=== PATIENT | male | born 1990 | race Caucasian/White ===

== ENCOUNTER 2018-06-03 00:58 | Emergency (ER) | payer BC, SELFPAY ==
[2018-06-03] VITALS (9 sets, daily range): BP systolic 131–139; BP diastolic 73–85; PULSE 89–99; RESP 14–18; TEMP 36.4; O2SAT 96–100; BMI 29.5
[2018-06-03 01:38] LABS: Absolute Lymphocyte Count 1.82 X10^3/ul (0.83-4.51); Absolute Neutrophil Count 8.4 X10^3/uL (2.0-7.7); Basophil# 0.09 X10^3/uL; Basophil% 0.8 % (0-1); Eosinophils% 0.9 % (0-5); Hematocrit 48.1 % (40-54); Hemoglobin 16.5 g/dl (13.0-16.5); Lymphocyte # 1.82 X10^3/ul (4.0); Mean Corp Hgb Conc 34.3 g/gl (32-36); Mean Corpuscular Hgb 30.3 pg (27.0-32.0); Mean Corpuscular Volume 88.3 fL (80-94); Mean Platelet Vol. 10.9 fl (6.2-12.0); Monocyte# 0.73 X10^3/uL; Monocyte% 6.4 % (0-10); Neutrophil # 8.39 X10^3/uL (2.7-7.7); Platelet Count 272 K/mm3 (150-450); RBC Distribution Width CV 12.4 % (11.6-14.6); RBC Distribution Width SD 40.1 fl (35.1-43.9); Red Blood Count 5.45 M/mm3 (4.6-6.2); White Blood Count 11.3 K/mm3 (4.4-11.0)
[2018-06-03 01:39] LABS: POSITIVE COUNT NO; POSITIVE DIFFERENTIAL NO; POSITIVE MORPHOLOGY NO
[2018-06-03 01:49] LABS: Anion Gap 5 (5-15); BUN 8 mg/dL (7-18); BUN/Creat Ratio 7.8 RATIO (10-20); Calcium,Total 8.7 mg/dL (8.5-10.1); Chloride 106 mmol/L (98-107); Creatinine, Serum 1.03 mg/dL (0.70-1.30); EST Glomerular Filtration Rate 92 mL/min (>60); Est Glom Filt Rate - Afr Amer 112 mL/min (>60); Estimated Creatinine Clearance 108.68 ml/min; Glucose 127 mg/dL (74-106); Potassium 4.2 mmol/L (3.5-5.1); Sodium Level 141 mmol/L (136-145)
[2018-06-03 01:52] LABS: Amphetamine Urine VISTA NEGATIVE (<1000 ng/mL); Barbiturate Urine VISTA NEGATIVE (< 200 ng/mL); Benzodiazepine Urine VISTA NEGATIVE (< 200 ng/mL); Cocaine Urine VISTA NEGATIVE (< 300 ng/mL); Ecstacy Urine VISTA NEGATIVE (< 500 ng/mL); Methadone Urine VISTA NEGATIVE (< 300 ng/mL); PCP Urine VISTA NEGATIVE (< 25 ng/mL); THC Urine VISTA NEGATIVE (< 50 ng/mL); Vista UDS pH Range 6
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
--- NOTE | 2018-06-03 07:13 | NURSING ---
OBDULIA, FANNY, CALLED BACK. SHE WILL LET NEXT SHIFT DO PATIENT
[2018-06-03] MEDS: Ondansetron ODT 4 MG Tablet PO (08:05)
--- NOTE | 2018-06-03 09:53 | NURSING ---
SHAI, CRISIS, HERE
--- NOTE | 2018-06-03 10:19 | ED.RN ---
DIETARY CALLED REGARDING LUNCH.
== END 2018-06-03 13:50 ==
PROVIDERS: Emergency Medicine; Emergency Provider Emergency Medicine; Family Provider Family Medicine; PCP Family Medicine
DX: R45.851 Suicidal ideations (principal); F10.129 Alcohol abuse with intoxication, unspecified; Y90.8 Blood alcohol level of 240 mg/100 ml or more
CPT/HCPCS: 36415; 80048; 80307; 80320; 85025; 99284; G0480

== ENCOUNTER 2019-12-26 16:37 | Emergency (ER) | payer SELFPAY ==
[2018-06-03 01:00] VITALS: BMI 29.5
[2019-12-26 16:38] VITALS: BP 111/75; PULSE 102; RESP 16; TEMP 36.2; O2SAT 98; BMI 28.0
[2019-12-26 17:01] LABS: Absolute Lymphocyte Count 2.45 X10^3/uL (0.83-4.51); Absolute Neutrophil Count 6.5 X10^3/uL (2.0-7.7); Basophil# 0.13 X10^3/uL; Basophil% 1.3 % (0-1); Eosinophil# 0.07 X10^3/uL; Eosinophils% 0.7 % (0-5); Hematocrit 51.1 % (40-54); Hemoglobin 16.6 g/dL (13.0-16.5); Lymphocyte # 2.45 X10^3/ul (4.0); Lymphocyte % 24.2 % (19-41); Mean Corp Hgb Conc 32.5 g/dL (32-36); Mean Corpuscular Hgb 28.9 pg (27.0-32.0); Monocyte# 0.65 X10^3/uL; Monocyte% 6.4 % (0-10); NRBC Flagged by Analyzer 0 % (0-5); Neutrophil # 6.48 X10^3/uL (2.7-7.7); Platelet Count 315 K/mm3 (150-450); RBC Distribution Width CV 12.4 % (11.6-14.6); RBC Distribution Width SD 40.4 fl (35.1-43.9); Red Blood Count 5.74 M/mm3 (4.6-6.2); White Blood Count 10.1 K/mm3 (4.4-11.0)
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
[2019-12-26 17:20] LABS: ALB/GLOB Ratio 1.1 RATIO (0.9-2.4); AST(SGOT) 22 U/L (15-37); Alanine Aminotransfer ALT/SGPT 39 U/L (16-61); Albumin, Serum 4.4 g/dL (3.2-5.0); Alkaline Phosphatase 110 U/L (45-117); Anion Gap 5 (5-15); BUN 12 mg/dL (7-18); BUN/Creat Ratio 9.9 RATIO (10-20); Calcium,Total 9.2 mg/dL (8.5-10.1); Chloride 107 mmol/L (98-107); Creatinine, Serum 1.21 mg/dL (0.70-1.30); EST Glomerular Filtration Rate 76 mL/min (>60); Est Glom Filt Rate - Afr Amer 92 mL/min (>60); Estimated Creatinine Clearance 90.89 ml/min; Glucose 81 mg/dL (74-106); Potassium 3.7 mmol/L (3.5-5.1); Protein, Total 8.4 g/dL (6.4-8.2); Sodium Level 141 mmol/L (136-145)
[2019-12-26 17:56] LABS: Amphetamine Urine VISTA NEGATIVE (<1000 ng/mL); Barbiturate Urine VISTA NEGATIVE (< 200 ng/mL); Benzodiazepine Urine VISTA NEGATIVE (< 200 ng/mL); Cocaine Urine VISTA NEGATIVE (< 300 ng/mL); Ecstacy Urine VISTA NEGATIVE (< 500 ng/mL); Methadone Urine VISTA NEGATIVE (< 300 ng/mL); PCP Urine VISTA NEGATIVE (< 25 ng/mL); THC Urine VISTA NEGATIVE (< 50 ng/mL); Vista UDS pH Range 6
--- NOTE | 2019-12-26 17:58 | CM.ED ---
SOCIAL WORK Suicidal Ideation Collaboration with Dr. Toure. Patient is self-pay. Alcohol level 278.0. Patient with history of attempt and hospitalization May 2018. Crisis to evaluate once medically cleared. Plan: Pending Crisis evaluation Gurpreet Cameron MSW, [facility]
[2019-12-26 18:00] VITALS: RESP 15
[2019-12-26 19:40] VITALS: RESP 16
[2019-12-26 20:30] VITALS: RESP 16
[2019-12-26 21:25] VITALS: RESP 14
[2019-12-26 22:09] VITALS: RESP 14
[2019-12-27 00:27] VITALS: O2SAT 14
[2019-12-27 01:11] VITALS: BP 128/72; PULSE 78; RESP 16; O2SAT 98
[2019-12-27 02:21] VITALS: RESP 14
[2019-12-27 03:52] VITALS: RESP 16
--- NOTE | 2019-12-27 07:54 | ED.DCSUM_ITS ---
- ER Visit Summary Date of Service: 12/27/19 This patient was checked out to me with a consult from the counseling center pending. Emergency Department Course and Treatment: The patient had a prolonged conversation with the counseling center. He denies any suicidal ideation at this time. He is able to contract for safety. He does want help with his alcohol abuse. Patient tells me that he does not drink daily and has never had withdrawal. However, when he does drink he binges. We discussed the pos sibility of detox and has not felt that this is necessary for him as he does not drink daily and does not have withdrawal symptoms. Treatment Plan: The patient was discussed with 180 by the counseling center. They would like him to come directly to the office now. He is instructed to follow-up the counseling center as soon as possible. Return to the emergency department for any worsening symptoms. Disposition: To home in improved and stable condition. Impression: 1. Depression. 2. Alcohol abuse. This note was generated with [employer] dictation software. It may contain incorrect words, spelling, and punctuation that were not noted in review of the chart prior to signing ED Disposition - Plan for ED Patient: Diagnosis: Suicidal ideation, Depression Instructions: ED Depression, ED Alcohol Abuse Referrals: [facility] [STAFF PHYSICIAN] - [facility] [GROUP OF PHYSICIANS] - As soon as possible Additional Instructions: Go to [facility] now.
[2019-12-27 08:04] VITALS: BP 138/74; PULSE 92; RESP 16; O2SAT 99
== END 2019-12-27 08:05 | disposition home or self-care (01) ==
PROVIDERS: Emergency Medicine; Emergency Provider Emergency Medicine; PCP Family Medicine
DX: F32.9 Major depressive disorder, single episode, unspecified (principal); R45.851 Suicidal ideations; F10.10 Alcohol abuse, uncomplicated; Z79.899 Other long term (current) drug therapy
CPT/HCPCS: 80053; 80307; 80320; 85025; 99283; G0480

== ENCOUNTER 2020-06-21 16:09 | Outpatient (RCR) | payer BC, SELFPAY | END 2020-08-27 23:59 | LOC: IMMUN 16:09 | PROVIDERS: PCP Family Medicine; Visit Provider Family Medicine | DX: Z23 Encounter for immunization (principal) | CPT/HCPCS: 0001A; 0002A; 91300 ==

== ENCOUNTER → 2020-12-24 08:51 | Outpatient (CLI) | payer BC, MEDICAID, SELFPAY ==
[2020-12-24 12:11] LABS: Absolute Lymphocyte Count 1.96 X10^3/uL (0.83-4.51); Absolute Neutrophil Count 3.5 X10^3/uL (2.0-7.7); Basophil% 1.5 % (0-1); Eosinophil# 0.14 X10^3/uL; Eosinophils% 2.1 % (0-5); Hematocrit 48.9 % (40-54); Lymphocyte # 1.96 X10^3/ul (0.83-4.51); Lymphocyte % 29.5 % (19-41); Mean Corp Hgb Conc 32.7 g/dL (32-36); Mean Corpuscular Hgb 29.4 pg (27.0-32.0); Mean Corpuscular Volume 89.9 fL (80-94); Mean Platelet Vol. 11.8 fl (6.2-12.0); Monocyte# 0.77 X10^3/uL; Monocyte% 11.6 % (0-10); NRBC Flagged by Analyzer 0 % (0-5); Neutrophil % 52.7 % (47-70); Platelet Count 247 K/mm3 (150-450); RBC Distribution Width SD 42.5 fl (35.1-43.9); Red Blood Count 5.44 M/mm3 (4.6-6.2); White Blood Count 6.6 K/mm3 (4.4-11.0)
[2020-12-24 12:40] LABS: ALB/GLOB Ratio 0.9 RATIO (0.9-2.4); AST(SGOT) 36 U/L (15-37); Alanine Aminotransfer ALT/SGPT 65 U/L (16-61); Albumin, Serum 3.6 g/dL (3.2-5.0); Alkaline Phosphatase 125 U/L (45-117); Anion Gap 7 (5-15); BUN 12 mg/dL (7-18); BUN/Creat Ratio 11.7 RATIO (10-20); Calcium,Total 9.6 mg/dL (8.5-10.1); Chloride 103 mmol/L (98-107); Cholesterol 279 mg/dL (200); Creatinine, Serum 1.03 mg/dL (0.70-1.30); EST Glomerular Filtration Rate 91 mL/min (>60); Est Glom Filt Rate - Afr Amer 110 mL/min (>60); Glucose 95 mg/dL (74-106); High Density Lipoprotein 46 mg/dL; Potassium 3.7 mmol/L (3.5-5.1); Protein, Total 7.6 g/dL (6.4-8.2); Sodium Level 139 mmol/L (136-145); Thyroid Stim Hormone (TSH) 2.65 uIU/mL (0.358-3.74); Triglycerides 309 mg/dL; Very Low Density Lipoprotein 62 mg/dL (5-40)
== END ==
PROVIDERS: PCP Internal Medicine; Referring Provider Nurse Practitioner Family; Visit Provider Nurse Practitioner Family
DX: F41.9 Anxiety disorder, unspecified (principal); F32.9 Major depressive disorder, single episode, unspecified; F43.10 Post-traumatic stress disorder, unspecified; F10.10 Alcohol abuse, uncomplicated; G47.00 Insomnia, unspecified
CPT/HCPCS: 36415; 80053; 80061; 84443; 85025

== ENCOUNTER 2021-07-07 10:29 | Outpatient (CLI) | payer BC, MEDICAID, SELFPAY ==
[2021-07-07 12:22] LABS: Vitamin D,25 Hydroxy 19.8 ng/mL
[2021-07-07 12:33] LABS: Cholesterol 242 mg/dL (200); High Density Lipoprotein 51 mg/dL; Thyroid Stim Hormone (TSH) 2.19 uIU/mL (0.358-3.74); Triglycerides 88 mg/dL; Very Low Density Lipoprotein 18 mg/dL (5-40)
== END 2021-07-07 23:59 | disposition home or self-care (01) ==
LOC: BIMLAB 10:30
PROVIDERS: PCP Internal Medicine; Referring Provider Internal Medicine; Visit Provider Internal Medicine
DX: E78.5 Hyperlipidemia, unspecified (principal)
CPT/HCPCS: 36415; 80061; 82306; 84443

== ENCOUNTER 2023-03-27 18:53 | Emergency (ER) | payer BC, SELFPAY ==
[2023-03-27 18:54] VITALS: BP 125/86; PULSE 86; RESP 18; TEMP 36; O2SAT 98; BMI 31.1
--- NOTE | 2023-03-27 19:04 | ED.VIS.GI ---
HPI HPI - GI History of Present Illness Chief Complaint: Nausea/Vomiting Narrative Narrative: 32-year-old male who denies significant past medical history presents with nausea, vomiting, and diarrhea that he has had over the last 4 days. States he was diagnosed with COVID 4 days ago and since then has been unable to keep anything down . He has been using Zofran without relief. He states it started with diarrhea and he has had multiple episodes within the last 24 hours that were nonbloody. Additionally, he has had at least 14 episodes of reported vomiting that is also nonbloody. He has diffuse abdominal cramping. States he is here mainly because he feels dehydrated and needs IV fluids. He feels feverish, and does admit to using THC Gummies at night to help him sleep. However, he has not used them in the past few days since he was diagnosed with COVID. [facility] Medical History Anxiety and depression Bilateral knee pain Chronic pain History of psychiatric hospitalization Hypersomnia Insomnia Low back pain PTSD (post-traumatic stress disorder) Shoulder pain Tinnitus Home Medications meloxicam 15 mg tablet 15 mg PO DAILY PRN pain #30 tabs 07/07/21 [Rx Last Taken Unknown] Allergy/AdvReac Type Severity Reaction Status Date / Time No Known Allergies Allergy Verified 03/27/23 18:54 Family History Father Anxiety Depression Mother Anxiety Depression Alcoholism in family Uncle Alcoholism in family Brother Alcoholism in family Surgical History History of tonsillectomy Social History Smoking Status: Never smoker Smokeless tobacco user: chewing tobacco 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 substance use type: does not use what type of physical activity do you participate in: other details: active job with heavy lifting ROS ROS ED ROS Narrative Constitutional: Positive subjective fever, no chills. Feels dehydrated. HEENT: No sore throat. No neck pain. No loss of vision. No rhinorrhea. Cardiovascular: No chest pain. No palpitations. No pedal edema. Respiratory: No cough, no shortness of breath. Abdominal: Diffuse, crampy abdominal pain. Multiple episodes of nonbloody nausea, vomiting, and diarrhea. Genitourinary: No dysuria. No hematuria. Musculoskeletal: No myalgias. No arthralgias. Neurologic: No headaches. No dizziness. No lightheadedness. Skin: No rash. No change in color. Psychiatric: No depression. No anxiety. EXAM Physical Exam Narrative Exam Narrative: Afebrile. Vital signs noted. HEENT: Normocephalic. Atraumatic. PERRL, EOMI. Neck soft and supple. No point tenderness or step off. Cardiovascular: Regular rate and rhythm. No murmurs, rubs, or gallops appreciated. Respiratory: No tachypnea. Lungs clear to auscultation bilaterally. Gastrointestinal: Abdomen soft, nontender, with normoactive bowel sounds. No rebound or guarding. Neurological: Awake. Alert. Nonfocal, nonlateralizing. Skin: No rash. Normal color. No pallor. Musculoskeletal: No pedal edema. Full range of motion extremities. Const Vital Signs: 03/27/23 18:54 Temperature 96.8 F L Temperature Source Temporal Pulse Rate 86 Respiratory Rate 18 Blood Pressure 125/86 H Blood Pressure Mean 99 Pulse Ox 98 Oxygen Delivery Method Room Air MDM MDM MDM Narrative Medical decision making narrative: In the differential diagnosis is COVID with GI symptoms, I have low suspicion for bowel obstruction, and he may have more of a nonspecific viral gastroenteritis. I do not feel CT imaging is indicated. He is not tachycardic currently but I will check him for dehydration as well with simple laboratory work including CBC, CMP, and a lipase to help rule out pancreatitis. He may have THC/cannabis induced hyperemesis. I reviewed his laboratory work and he has slightly elevated white count of 13.6 which may be demargination from his vomiting, hemoglobin slightly hemoconcentrated at 16.6 with hematocrit 48.2, platelet count normal at 257. His CMP is grossly unremarkable with a normal sodium of 136 and potassium normal at 3.6, BUN of 18 and creatinine 1.22, glucose is appropriately elevated at 126 with a normal anion gap of 9. Lipase is normal at 18 LFTs are also normal/unremarkable. After he had received Reglan, lorazepam 0.5 mg and Pepcid for his presumed cyclic vomiting, he was mildly agitated and had more abdominal cramping. I do feel this may be more of a side effect from the Reglan from promoting gastric emptying. He was administered Bentyl 20 mg intramuscularly and Benadryl 50 mg IV. Upon repeat examination at approximately 2014, he is improved and sitting up in bed. Once his IV fluids are finished, I feel he can be discharged to follow-up with his primary care provider. He was told to avoid the use of THC/and cannabis as this may have produced some of his nausea and vomiting. He states he has enough Zofran at home and he was told that he could take up to 8 mg every 6-8 hours. I feel he be discharged to follow-up. Return instructions to the emergency department were reviewed. Disposition is discharged home in stable condition. History & Record Review Discussion w/independent historian: Patient Additional record(s) reviewed:: Prior ED visit and Prior labs Lab Data Attestation: I reviewed the patient's lab results. Labs: Laboratory Results - last 24 hr 03/27/23 19:22 WBC 13.6 H RBC 5.82 Hgb 16.6 H Hct 48.2 MCV 82.8 MCH 28.5 MCHC 34.4 RDW Std Deviation 37.2 RDW Coeff of Elieser 12.4 Plt Count 257 MPV 11.6 Immature Gran % (Auto) 1.500 H Neut % (Auto) 82.0 H Lymph % (Auto) 6.5 L [place] % (Auto) 8.8 Eos % (Auto) 0.4 Baso % (Auto) 0.8 Absolute Neuts (auto) 11.2 H Absolute Lymphs (auto) 0.88 Nucleated RBC % 0 Sodium 136 Potassium 3.6 Chloride 104 Carbon Dioxide 23.0 Anion Gap 9 BUN 18 Creatinine 1.22 Estim Creat Clear Calc 87.73 Est GFR (MDRD) Af Amer 89 Est GFR (MDRD) Non-Af 74 BUN/Creatinine Ratio 14.8 Glucose 126 H Calcium 9.9 Total Bilirubin 1.00 AST 16 ALT 32 Alkaline Phosphatase 94 Total Protein 8.1 Albumin 4.0 Globulin 4.1 Albumin/Globulin Ratio 1.0 Lipase 18 Discharge Plan Triage Chief Complaint: Nausea/Vomiting ED Provider: Raz Amin Dx/Rx/DC Orders Clinical Impression: Nausea, vomiting, and diarrhea, COVID Instructions: ED Diet Vomiting Diarrhea Prescriptions: No Action meloxicam 15 mg tablet 15 mg PO DAILY PRN (Reason: pain) Qty: 30 2RF Primary Care Provider: Nikhil Mayer Referrals: Nikhil Mayer MD [Primary Care Provider] - 3-5 Days if not improving Activity Restrictions/Additional Instructions: Take your Zofran, 4 to 8 mg every 6-8 hours as needed for nausea and vomiting. Drink plenty of fluids. Avoid use of THC/cannabis when possible. Disposition Disposition: Home, Self Care
[2023-03-27] MEDS: 0.9% Normal Saline (1000mL) 1,000 ML 1000 ML IV (19:18)
[2023-03-27] MEDS: Metoclopramide 10 MG/2 ML Vial IV (19:18)
[2023-03-27] MEDS: LORazepam 2 MG/ML Syringe 0.5 MG IV (19:18)
[2023-03-27 19:29] LABS: Absolute Lymphocyte Count 0.88 X10^3/uL (0.83-4.51); Absolute Neutrophil Count 11.2 X10^3/uL (2.0-7.7); Basophil# 0.11 X10^3/uL; Basophil% 0.8 % (0-1); Eosinophil# 0.06 X10^3/uL; Eosinophils% 0.4 % (0-5); Hematocrit 48.2 % (40-54); Hemoglobin 16.6 g/dL (13.0-16.5); Lymphocyte # 0.88 X10^3/ul (0.83-4.51); Lymphocyte % 6.5 % (19-41); Mean Corp Hgb Conc 34.4 g/dL (32-36); Mean Corpuscular Hgb 28.5 pg (27.0-32.0); Mean Corpuscular Volume 82.8 fL (80-94); Mean Platelet Vol. 11.6 fl (6.2-12.0); Monocyte# 1.19 X10^3/uL; Monocyte% 8.8 % (0-10); NRBC Flagged by Analyzer 0 % (0-5); Neutrophil # 11.15 X10^3/uL (2.7-7.7); Platelet Count 257 K/mm3 (150-450); RBC Distribution Width CV 12.4 % (11.6-14.6); RBC Distribution Width SD 37.2 fl (35.1-43.9); Red Blood Count 5.82 M/mm3 (4.6-6.2); White Blood Count 13.6 K/mm3 (4.4-11.0)
--- OUTSIDE RECORDS SUMMARY | 2023-03-27 19:31 | XMS RPT_ITS | CCD ---
Author Name Unknown Address [address] [place] [address] Organization [facility] Care Team Providers Care Databases Computer Consultant Name Role Phone Kisha Berg Attending Unavaila gonzalo KELLY, VICKIE Attending Unavailable VICKIE KELLY Attending Unavailable PacerJohanne Attending Unavailable Pacetaurus, Johanne Victor Attending Unavailable Kisha Berg Attending Unavaila gonzalo Barreto MD, Tim Morelos Primary Care Provider Belinda MILLER, Tim Morelos Primary Care Provider [phone] Belinda MILLER, Tim Morelos Primary Care Provider [phone] TIM BARRETO Primary Care Unavailable TIM BARRETO Referring Unavailable TIM BARRETO Primary Care Unavailable TIM BARRETO Primary Care Unavailable CRISS CHANG Primary Care Physician [phone] MARY CHANG Primary Care Unavailable LU MILLER, DR KAN Attending Unavailab le Medications Current Medications Medication Drug Class(es) Dates Sig (Normalized) Sig (Original) acetaminophen 325 mg / HYDROcodone bitartrate 5 mg oral tablet (1 source) Opioid Agonist Start: 12-12-2014 take 1 tablet by mouth every six hours Ransom 325- 5 mg oral tablet Dose = 1 tab(s), Oral, q6h, # 30 tab(s), 0 Refill(s) Start Date: 12/12/14 Status: Ordered dicyclomine hydrochloride 10 mg oral capsule (1 source) Anticholinergic Start: 01-15-2023 End: 01-22-2023 dicyclomine 10 mg oral capsule Dose : 10 mg = 1 cap(s), Oral, QID, # 28 cap(s), 0 Refill(s) Start Date: 01/15/23 Stop Date: 01/22/23 Status: Ordered ondansetron 4 mg oral tablet (1 source) Serotonin-3 Receptor Antagonist Start: 01-15-2023 End: 01-17-2023 ondansetron 4 mg oral tablet Dose : 4 mg = 1 tab(s), Oral, q6h, X 2 day(s), # 10 tab(s), 0 Refill(s), 01/17/23 6:53:00 PM EDT Start Date: 01/15/23 Stop Date: 01/17/23 Status: Ordered polymyxin b 01984 unt/ml / trimethoprim 1 mg/ml ophthalmic solution (1 source) Dihydrofolate Reductase Inhibitor Antibacterial, Polymyxin-class Antibacterial Start: 07-22-2021 End: 07-29-2021 take 1 drop(s) into the eye(s) every four hours trimethoprim-ibrahima ymyxin (POLYTRIM) 10,000 unit- 1 mg/mL ophthalmic solution Use 1 Drop in the left eye every 4 hours for 7 days. 10 mL 0 07/22/2021 07/29/2021 Active Completed/Discontinued Medications Medication Drug Class(es) Dates Sig (Normalized) Sig (Original) acetaminophen 325 mg oral capsule (3 sources) acetaminophen 32 5 mg cap Take by mouth. 0 Active Problems Problem Classification Problem Date Documented Date Episodic/Chronic Inflammation; infection of eye (except that caused by tuberculosis or sexually transmitteddisease) (1 source) Bacterial conjunctivitis; Translations: [Unspecified conjunctivitis] Episodic Noninfectious gastroenteritis (1 source) Noninfectious enteritis; Translations: [Noninfective gastroenteritis and colitis, unspecified] Onset: 01-15-2023 Episodic Other injuries and conditions due to external causes (1 source) Blister; Translations: [Other injury of unspecified body region, initial encounter] Episodic Results Test Name Value Interpretation Reference Range Facil ity Vital Signs Date Time Vital Sign Value Performing Clinician Facility 01-15-2023 19:38-0400 Diastolic Blood Pressure Non-Invasive 56 1 TANIA COURTNEY DO [facility] 01-15-2023 19:38-0400 Heart rate 78 /min TANIA COURTNEY DO [facility] 01-15-2023 19:38-0400 Respiratory rate 18 /min TANIA DURESKA DO [facility] 01-15-2023 19:38-0400 Systolic Blood Pressure Non-Invasive 132 1 TANIA DURESKA DO [facility] 01-15-2023 18:26-0400 Diastolic Blood Pressure Non-Invasive 72 1 TANIA DURESKA DO [facility] 01-15-2023 18:26-0400 Heart rate 89 /min TANIA DURESKA DO [facility] 01-15-2023 18:26-0400 Respiratory rate 20 /min TANIA DURESKA DO [facility] 01-15-2023 18:26-0400 Systolic Blood Pressure Non-Invasive 134 1 TANIA DURESKA DO [facility] 01-15-2023 15:57-0400 Body height 177.8 cm TANIA DURESKA DO [facility] 01-15-2023 15:57-0400 Body temperature 98.06 [degF] TANIA DURESKA DO [facility] 01-15-2023 15:57-0400 Body weight 104.5 kg TANIA DURESKA DO [facility] 01-15-2023 15:57-0400 Diastolic Blood Pressure Non-Invasive 96 1 TANIA DURESKA DO [facility] 01-15-2023 15:57-0400 Heart rate 91 /min TANIA DURESKA DO [facility] 01-15-2023 15:57-0400 Respiratory rate 24 /min TANIA COURTNEY DO [facility] 01-15-2023 15:57-0400 Systolic Blood Pressure Non-Invasive 148 1 TANIA COURTNEY DO [facility] 11-15-2021 12:36-0400 Body temperature 98.4 [degF] Janette Edwards APRN.COMPUTER FORENSIC EXAMINER Work Phone: [facility] 11-15-2021 12:36-0400 Body weight 102.06 kg Janette Edwards APRN.COMPUTER FORENSIC EXAMINER Work Phone: [facility] 11-15-2021 12:36-0400 Diastolic blood pressure 72 mm[Hg] Janette Edwards APRN.COMPUTER FORENSIC EXAMINER Work Phone: [facility] 11-15-2021 12:36-0400 Heart rate 94 /min Janette Edwards APRN.COMPUTER FORENSIC EXAMINER Work Phone: [facility] 11-15-2021 12:36-0400 Respiratory rate 16 /min Janette Edwards APRN.COMPUTER FORENSIC EXAMINER Work Phone: [facility] 11-15-2021 12:36-0400 SaO2% (BldA) [Mass fraction] 99 % Janette Edwards APRN.COMPUTER FORENSIC EXAMINER Work Phone: [facility] 11-15-2021 12:36-0400 Systolic blood pressure 124 mm[Hg] Janette Edwards APRN.COMPUTER FORENSIC EXAMINER Work Phone: [facility] 07-22-2021 08:12-0400 Body temperature 97.9 [degF] Janette Edwards APRN.COMPUTER FORENSIC EXAMINER Work Phone: [facility] 07-22-2021 08:12-0400 Body weight 100.88 kg Janette Edwards APRN.COMPUTER FORENSIC EXAMINER Work Phone: [facility] 07-22-2021 08:12-0400 Diastolic blood pressure 76 mm[Hg] Janette Edwards APRN.COMPUTER FORENSIC EXAMINER Work Phone: [facility] 07-22-2021 08:12-0400 Heart rate 79 /min Janette Edwards APRN.COMPUTER FORENSIC EXAMINER Work Phone: [facility] 07-22-2021 08:12-0400 Respiratory rate 14 /min Janette Edwards APRN.COMPUTER FORENSIC EXAMINER Work Phone: [facility] 07-22-2021 08:12-0400 SaO2% (BldA) [Mass fraction] 97 % Janette Edwards APRN.COMPUTER FORENSIC EXAMINER Work Phone: [facility] 07-22-2021 08:12-0400 Systolic blood pressure 128 mm[Hg] Janette Edwards APRN.COMPUTER FORENSIC EXAMINER Work Phone: [facility] Encounters Encounter Date Encounter Type Care Provider Facility Start: 01-15-2023 End: 01-15-2023 Emergency department patient visit [employer] PROJECT MANAGER-C CRISS BARRAGANDER Facility:B Start: 01-15-2023 End: 01-15-2023 Emergency department patient visit TANIA FAROOQCELINA [facility] Start: 03-10-2022 Telephone encounter Sima Uriel SLOISCOMPUTER FORENSIC EXAMINER Work Phone: Nayeli Cardenas Care Plan of Treatment Date Care Activity Detail Author Start: 11-20-2021 Influenza vaccination C [facility] Start: 11-15-2021 End: 01-15-2022 Herpes simplex virus+Varicella zoster virus DNA [Presence] in Unspecified specimen by BRIANNA with probe detection HSV 1,2/VZV AMP MOLECULAR DETECT Lab Routine Blister Expected: 11/15/2021, Expires: 01/15/2022 [facility] Work Phone: Payers Date Payer Category Payer Unknown [id number] 2021 Unknown [id number] 2020 Unknown [employer]UE C[employer] PPO OOS [id number] 2020-Present [phone] [address] [place] [address] PPO [id number] 2020 Unknown [id number] 2020 Unknown [id number] 1991 Unknown [id number] 1991 Unknown [id number] 1991 Unknown [id number] 1991 Unknown [id number] 1991 Unknown [id number] 1991 Unknown [id number] 1991 Unknown [id number] Unknown [id number] Unknown [id number] Social History Date Type Detail Facility Start: 01-10-2018 End: 11-15-2021 Tobacco smoking status NHIS Never smoked tobacco [facility] Start: 01-10-2018 End: 11-15-2021 Tobacco use and exposure User of smokeless tobacco [facility] Start: 07-22-2021 End: 03-09-2022 Alcohol intake Lifetime non-drinker (finding) [facility] Start: 07-22-2021 History SDOH Alcohol Frequency 1 [facility] Start: 1990 Sex Assigned At Not on file C [facility] Start: 07-12-2021 End: 07-22-2021 Exposure to SARS-CoV-2 (event) Not sure [facility] Tobacco smoking status Tobacco s moking consumption unknown (finding) [facility] Sex Assigned At Sex [facility] Functional Status Date Assessment Result Facility 01-15-2023 Functional Status ID band on, Safety level maintained [facility] Mental Status Date Assessment Result Facility 01-15-2023 Mental Status Oriented x 4 [facility] Clinical Notes 07-22-2021 to 01-15-2023 Telephone Encounter - Karen Lundberg MANAGER OUTREACH - 03/10/2022 8:29 AM ESTTelephone Encounter - Sima Trevino APRN.FLOR - 03/10/2022 7:53 AM Kendra Edwards APRN.FLOR - 11/15/2021 12:48 PM EDT Note Date & Type Note Facility 01-15-2023 Hospital Discharg e instructions Patient Education 01/15/2023 18:53:23 Gastroenteritis, Noninfectious Noninfectious Gastroenteritis (Adult) Gastroenteritis can cause nausea, vomiting, diarrhea, and cramping in the belly. This may occur from food sensitivity, inflammation of your gastrointestinal tract, medicines, stress, or other causes not related to infection. Your symptoms will usually last from 1 to 3 days, but can last longer. Antibiotics are not effective, but simple home treatment will be helpful. Home care Medicine You may use acetaminophen or NSAID medicines like ibuprofen or naproxen to control fever, unless another medicine is prescribed. (Note: If you have chronic liver or kidney disease, or ever had a stomach ulcer or gastrointestinaI bleeding, talk with your healthcare provider before using these medicines.) Aspirin should never be used in anyone under 18 years of age who is ill with a fever. It may cause severe liver damage. Don't increase your NSAID medicines if you are already taking these medicines for another condition (like arthritis). Don't use NSAIDS if you are on aspirin (such as for heart disease, or after a stroke). If medicines for diarrhea or vomiting are prescribed, take only as directed. General care and preventing spread of the illness If symptoms are severe, rest at home for the next 24 hours or until you feel better. Hand washing with soap and water is the best way to prevent the spread of infection. Wash your hands after touching anyone who is sick. Wash your hands after using the toilet and before meals. Clean the toilet after each use. Caffeine, tobacco, and alcohol can make your diarrhea, cramping, and pain worse. Diet Water and clear liquids are important so you do not get dehydrated. Drink a small amount at a time. Don't force yourself to eat, especially if you have cramps, vomiting, or diarrhea. When you finally decide to start eating, do not eat large amounts at a time, even if you are hungry. If you eat, avoid fatty, greasy, spicy, or fried foods. Don't eat dairy products if you have diarrhea; they can make the diarrhea worse. During the first 24 hours (the first full day), follow the diet below: Beverages: Water, clear liquids, soft drinks without caffeine, like tiffanie angie; mineral water (plain or flavored); decaffeinated tea and coffee. Soups: Clear broth, consomm , and bouillon sports drinks aren't a good choice because they have too much sugar and not enough electrolytes. In this case, commercially available products called oral rehydration solutions are best. Desserts: Plain gelatin, ice pops, and fruit juice bars During the next 24 hours (the second day), you may add the following to the above if you have improved. If not, continue what you did the first day: Hot cereal, plain toast, bread, rolls, crackers Plain noodles, rice, mashed potatoes, chicken noodle or rice soup Unsweetened canned fruit and bananas (don't eat pineapple or citrus) Limit caffeine and chocolate. No spices or seasonings except salt. During the next 24 hours Gradually resume a normal diet, as you feel better and your symptoms improve. If at any time your symptoms start getting worse, go back to clear liquids until you feel better. Food preparation If you have diarrhea, you should not prepare food for others. When you prepare food for yourself, wash your hands before and after. Wash your hands after using cutting boards, countertops, and knives that have been in contact with raw food. Keep uncooked meats away from cooked and tmwdk-qn-kmn foods. Follow-up care Follow up with your healthcare provider if you are not improving over the next 2 to 3 days, or as advised. If a stool (diarrhea) sample was taken, call for the results as directed. Call 911 Call 911 if any of these occur: Trouble breathing Chest pain Confusion Severe drowsiness or trouble awakening Seizure Stiff neck When to seek medical advice Call your healthcare provider right away if any of these occur: Increasing belly pain or constant lower right belly pain Continued vomiting (unable to keep liquids down) Frequent diarrhea (more than 5 times a day) Blood in vomit or stool (black or red color) Inability to tolerate solid food after a few days. Dark urine, reduced urine output Weakness, dizziness Drowsiness Fever of 100.4 F (38.0 C) or higher, or as directed by your healthcare provider Arie cerda [phone] [employer]. [address] [place] [address]. All rights reserved. This information is not intended as a substitute for professional medical care. Always follow your healthcare professional's instructions. 01/15/2023 18:52:54 Diet for Vomiting or Diarrhea (Adult) Diet for Vomiting or Diarrhea (Adult) Your symptoms may return or get worse after eating certain foods listed below. If this happens, stop eating these foods until your symptoms ease and you feel better. Once the vomiting stops, follow the steps below. During the first 12 to 24 hours During the first 12 to 24 hours, follow this diet: Drinks. Plain water, sport drinks like electrolyte solutions, soft drinks without caffeine, mineral water (plain or flavored), clear fruit juices, and decaffeinated tea and coffee. Soups. Clear broth. Desserts. Plain gelatin, popsicles, and fruit juice bars. As you feel better, you may add 6 to 8 ounces of yogurt per day. If you have diarrhea, don't have foods or drinks that contain sugar, high-fructose corn syrup, or sugar alcohols. During the next 24 hours During the next 24 hours you may add the following to the above: Hot cereal, plain toast, bread, rolls, and crackers Plain noodles, rice, mashed potatoes, and chicken noodle or rice soup Unsweetened canned fruit (but not pineapple) and bananas Don't eat more than 15 grams of fat a day. Do this by staying away from margarine, butter, oils, mayonnaise, sauces, gravies, fried foods, peanut butter, meat, poultry, and fish. Don't eat much fiber. Stay away from raw or cooked vegetables, fresh fruits (except bananas), and bran cereals. Limit how much caffeine and chocolate you have. Do not use any spices or seasonings except salt. During the next 24 hours Slowly go back to your normal diet, as you feel better and your symptoms ease. [phone] [employer]. [address] [place] [address]. All rights reserved. This information is not intended as a substitute for professional medical care. Always follow your healthcare professional's instructions. Follow Up Care 01/15/2023 15:25:38 With:MARY CHANG Address: [address] [place] [phone] When:2-4 days [facility] 01-15-2023 Note Discharge Instructions Thank you for allowing [facility] to assist you with your healthcare needs. The following is important discharge information regarding your hospital visit. Diagnosis from Today's Visit Abdominal pain Colitis What to Do Next Instructions from Your Care Team Discharge Return to Work, School, or Sports (Return to Work, School, or Sports) - Ordered -- 01/18/23, May return to: work, 01/15/23 18:53:00 EDT Post Acute Orders No qualifying data available. You Need to Schedule the Following Appointments Follow Up with MARY CHANG When Within 2-4 days Where: [address] [place] [phone] Allergies NKA Medications Please ask your primary doctor or pharmacist before taking any other medication not listed, including over the counter drugs, herbal medications, vitamins and or supplements as they may interact with your home medications. What How Much When Instructions Last Dose New dicyclomine (dicyclomine 10 mg oral capsule) 1 cap by mouth Four (4) times a day Duration: 7 Days Printed Prescription Changed ondansetron (ondansetron 4 mg oral tablet) 1 tab(s) by mouth Every 6 hours Duration: 2 Days Printed Prescription Changed ondansetron (Zofran ODT 4 mg oral tablet, disintegrating) 1 tab(s) by mouth Every 6 hours Unchanged acetaminophen-HYDROcodone (Ransom 325- 5 mg oral tablet) 1 tab(s) by mouth Every 6 hours Please take this list to your next doctor s visit. Bring all medications you take, including over the counter medications, herbals and other supplements with you to your doctor s visit. Patients and families are reminded to discard old lists and to update any records with all medication providers or retail pharmacies. Medication Leaflets dicyclomine (oral/injection) (mikael Orlando What is the most important information I should know about dicyclomine? Many drugs can affect dicyclomine. Tell your doctor about all your current medicines. What is dicyclomine? Dicyclomine is used to treat functional bowel or irritable bowel syndrome. Dicyclomine may also be used for purposes not listed in this medication guide. What should I discuss with my healthcare provider before taking dicyclomine? You should not use dicyclomine if you are allergic to it, or if you have: glaucoma; a bladder obstruction or other urination problems; a blockage in your digestive tract (stomach or intestines); severe ulcerative colitis; gastroesophageal reflux disease (GERD); a serious heart condition and active bleeding; myasthenia gravis; or if you are a baby. Not approved for use by anyone younger than 18 years old. Dicyclomine should never be given to a child younger than 6 months old. Tell your doctor if you have ever had: heart problems or high blood pressure; a stroke; ulcerative colitis; an ileostomy or colostomy; an enlarged prostate; or liver or kidney disease. Older adults may be more sensitive to the effects of this medicine. Tell your doctor if you are . Do not breastfeed. How should I take dicyclomine? Follow all directions on your prescription label and read all medication guides or instruction sheets. Your doctor may occasionally change your dose. Use the medicine exactly as directed. Dicyclomine oral is taken by mouth. Measure liquid medicine with the supplied syringe or a dose-measuring device (not a kitchen spoon). Dicyclomine injection is given in a muscle if you are unable to take the medicine by mouth. Call your doctor if your symptoms do not improve after 2 weeks. Store at room temperature away from moisture and heat. What happens if I miss a dose? Skip the missed dose and use your next dose at the regular time. Do not use two doses at one time. What happens if I overdose? Seek emergency medical attention or call the Poison Help line at . Overdose can cause nausea, vomiting, dilated pupils, weakness or loss of movement in any part of your body, trouble swallowing, fainting, or seizure (convulsions). What should I avoid while taking dicyclomine? May cause dizziness or blurred vision. Avoid driving or hazardous activity until you know how this medicine will affect you. Avoid becoming overheated or dehydrated during exercise and in hot weather. Dicyclomine can decrease sweating and you may be more prone to heat stroke. Tell your doctor if you have a fever while taking dicyclomine. Avoid using an antacid. Antacids can make it harder for your body to absorb dicyclomine oral. What are the possible side effects of dicyclomine? Get emergency medical help if you have signs of an allergic reaction: hives; difficult breathing; swelling of your face, lips, tongue, or throat. Call your doctor at once if you have: fast or slow heartbeats, pounding heartbeats or fluttering in your chest; confusion, agitation, hallucinations, unusual thoughts or behavior; problems with memory or speech; problems with balance or muscle movement; diarrhea, severe constipation, or worsening of bowel symptoms; trouble swallowing; bruising, swelling, or pain where a dicyclomine injection was given; or dehydration --dizziness, confusion, feeling very thirsty, less urination or sweating. Confusion and mood or behavior changes may be more likely in older adults. Common side effects may include: drowsiness, dizziness, weakness, nervousness; blurred vision; dry mouth; or nausea. This is not a complete list of side effects and others may occur. Call your doctor for medical advice about side effects. You may report side effects to FDA at 7-473-WBB-8060. What other drugs will affect dicyclomine? Using dicyclomine with other drugs that make you drowsy can worsen this effect. Ask your doctor before using opioid medication, a sleeping pill, a muscle relaxer, or medicine for anxiety or seizures. Tell your doctor about all your current medicines. Many drugs can affect dicyclomine, especially: bronchodilator asthma medication; cold or allergy medicine (Benadryl and others); glaucoma medication; heart medication; medicine to treat depression, anxiety, mood disorders, or mental illness; medicine to treat overactive bladder; medicine to treat Parkinson's disease; or medicine to treat stomach problems, motion sickness, or irritable bowel syndrome. This list is not complete and many other drugs may affect dicyclomine. This includes prescription and ijve-jfj-kreitom medicines, vitamins, and herbal products. Not all possible drug interactions are listed here. Where can I get more information? Your pharmacist can provide more information about dicyclomine. Remember, keep this and all other medicines out of the reach of children, never share your medicines with others, and use this medication only for the indication prescribed. Every effort has been made to ensure that the information provided by [employer] ('[employer]') is accurate, up-to-date, and complete, but no guarantee is made to that effect. Drug information contained herein may be time sensitive. [employer] information has been compiled for use by healthcare practitioners and consumers in the [place] and therefore [employer] does not warrant that uses outside of the [place] are appropriate, unless specifically indicated otherwise. [employer]'s drug information does not endorse drugs, diagnose patients or recommend therapy. [employer] drug information is an informational resource designed to assist licensed healthcare practitioners in caring for their patients and/or to serve consumers viewing this service as a supplement to, and not a substitute for, the expertise, skill, knowledge and judgment of healthcare practitioners. The absence of a warning for a given drug or drug combination in no way should be construed to indicate that the drug or drug combination is safe, effective or appropriate for any given patient. [employer] does not assume any responsibility for any aspect of healthcare administered with the aid of information [employer] provides. The information contained herein is not intended to cover all possible uses, directions, precautions, warnings, drug interactions, allergic reactions, or adverse effects. If you have questions about the drugs you are taking, check with your doctor, nurse or pharmacist. Copyright 0604-5983 [employer]. Version: 8.01. Revision Date: 10/23/2022. ondansetron (oral) (on ASHLY se eduin) What is the most important information I should know about ondansetron? You should not use ondansetron if you are also using apomorphine (Apokyn). What is ondansetron? Ondansetron blocks the actions of chemicals in the body that can trigger nausea and vomiting. Ondansetron is used to prevent nausea and vomiting that may be caused by surgery, cancer chemotherapy, or radiation treatment. Ondansetron may be used for purposes not listed in this medication guide. What should I discuss with my health care provider before taking ondansetron? You should not use ondansetron if: you are also using apomorphine (Apokyn); or you are allergic to ondansetron or similar medicines (dolasetron, granisetron, palonosetron). To make sure ondansetron is safe for you, tell your doctor if you have: liver disease; an electrolyte imbalance (such as low levels of potassium or magnesium in your blood); congestive heart failure, slow heartbeats; a personal or family history of long QT syndrome; or a blockage in your digestive tract (stomach or intestines). Ondansetron is not expected to harm an unborn baby. Tell your doctor if you are . It is not known whether ondansetron passes into breast milk or if it could harm a nursing baby. Tell your doctor if you are breast-feeding a baby. Ondansetron is not approved for use by anyone younger than 4 years old. Ondansetron orally disintegrating tablets may contain phenylalanine. Tell your doctor if you have phenylketonuria (PKU). How should I take ondansetron? Follow all directions on your prescription label. Do not take this medicine in larger or smaller amounts or for longer than recommended. Ondansetron can be taken with or without food. The first dose of ondansetron is usually taken before the start of your surgery, chemotherapy, or radiation treatment. Follow your doctor's dosing instructions very carefully. Take the ondansetron regular tablet with a full glass of water. To take the orally disintegrating tablet (Zofran ODT): Keep the tablet in its blister pack until you are ready to take it. Open the package and peel back the foil. Do not push a tablet through the foil or you may damage the tablet. Use dry hands to remove the tablet and place it in your mouth. Do not swallow the tablet whole. Allow it to dissolve in your mouth without chewing. Swallow several times as the tablet dissolves. To use ondansetron oral soluble film (strip) (Mary Ellen): Keep the strip in the foil pouch until you are ready to use the medicine. Using dry hands, remove the strip and place it on your tongue. It will begin to dissolve right away. Do not swallow the strip whole. Allow it to dissolve in your mouth without chewing. Swallow several times after the strip dissolves. If desired, you may drink liquid to help swallow the dissolved strip. Wash your hands after using Zuplenz. Measure liquid medicine with the dosing syringe provided, or with a special dose-measuring spoon or medicine cup. If you do not have a dose-measuring device, ask your pharmacist for one. Store at room temperature away from moisture, heat, and light. Store liquid medicine in an upright position. What happens if I miss a dose? Take the missed dose as soon as you remember. Skip the missed dose if it is almost time for your next scheduled dose. Do not take extra medicine to make up the missed dose. What happens if I overdose? Seek emergency medical attention or call the Poison Help line at . Overdose symptoms may include sudden loss of vision, severe constipation, feeling light-headed, or fainting. What should I avoid while taking ondansetron? Ondansetron may impair your thinking or reactions. Be careful if you drive or do anything that requires you to be alert. What are the possible side effects of ondansetron? Get emergency medical help if you have signs of an allergic reaction: rash, hives; fever, chills, difficult breathing; swelling of your face, lips, tongue, or throat. Call your doctor at once if you have: severe constipation, stomach pain, or bloating; headache with chest pain and severe dizziness, fainting, fast or pounding heartbeats; fast or pounding heartbeats; jaundice (yellowing of the skin or eyes); blurred vision or temporary vision loss (lasting from only a few minutes to several hours); high levels of serotonin in the body--agitation, hallucinations, fever, fast heart rate, overactive reflexes, nausea, vomiting, diarrhea, loss of coordination, fainting. Common side effects may include: diarrhea or constipation; headache; drowsiness; or tired feeling. This is not a complete list of side effects and others may occur. Call your doctor for medical advice about side effects. You may report side effects to FDA at 1-412-PQG-6931. What other drugs will affect ondansetron? Ondansetron can cause a serious heart problem, especially if you use certain medicines at the same time, including antibiotics, antidepressants, heart rhythm medicine, antipsychotic medicines, and medicines to treat cancer, malaria, HIV or AIDS. Tell your doctor about all medicines you use, and those you start or stop using during your treatment with ondansetron. Taking ondansetron while you are using certain other medicines can cause high levels of serotonin to build up in your body, a condition called 'serotonin syndrome,' which can be fatal. Tell your doctor if you also use: medicine to treat depression; medicine to treat a psychiatric disorder; a narcotic (opioid) medication; or medicine to prevent nausea and vomiting. This list is not complete and many other drugs can interact with ondansetron. This includes prescription and mcck-zxc-ouwiyrk medicines, vitamins, and herbal products. Give a list of all your medicines to any healthcare provider who treats you. Where can I get more information? Your pharmacist can provide more information about ondansetron. Remember, keep this and all other medicines out of the reach of children, never share your medicines with others, and use this medication only for the indication prescribed. Every effort has been made to ensure that the information provided by [employer]. ('[employer]') is accurate, up-to-date, and complete, but no guarantee is made to that effect. Drug information contained herein may be time sensitive. [employer] information has been compiled for use by healthcare practitioners and consumers in the [place] and therefore [employer] does not warrant that uses outside of the [place] are appropriate, unless specifically indicated otherwise. [employer]'s drug information does not endorse drugs, diagnose patients or recommend therapy. [employer] drug information is an informational resource designed to assist licensed healthcare practitioners in caring for their patients and/or to serve consumers viewing this service as a supplement to, and not a substitute for, the expertise, skill, knowledge and judgment of healthcare practitioners. The absence of a warning for a given drug or drug combination in no way should be construed to indicate that the drug or drug combination is safe, effective or appropriate for any given patient. [employer] does not assume any responsibility for any aspect of healthcare administered with the aid of information [employer] provides. The information contained herein is not intended to cover all possible uses, directions, precautions, warnings, drug interactions, allergic reactions, or adverse effects. If you have questions about the drugs you are taking, check with your doctor, nurse or pharmacist. Copyright 9248-7514 [employer]. Version: 16.. Revision Date: 10/22/2022. Education Materials Noninfectious Gastroenteritis (Adult) Gastroenteritis can cause nausea, vomiting, diarrhea, and cramping in the belly. This may occur from food sensitivity, inflammation of your gastrointestinal tract, medicines, stress, or other causes not related to infection. Your symptoms will usually last from 1 to 3 days, but can last longer. Antibiotics are not effective, but simple home treatment will be helpful. Home care Medicine You may use acetaminophen or NSAID medicines like ibuprofen or naproxen to control fever, unless another medicine is prescribed. (Note: If you have chronic liver or kidney disease, or ever had a stomach ulcer or gastrointestinaI bleeding, talk with your healthcare provider before using these medicines.) Aspirin should never be used in anyone under 18 years of age who is ill with a fever. It may cause severe liver damage. Don't increase your NSAID medicines if you are already taking these medicines for another condition (like arthritis). Don't use NSAIDS if you are on aspirin (such as for heart disease, or after a stroke). If medicines for diarrhea or vomiting are prescribed, take only as directed. General care and preventing spread of the illness If symptoms are severe, rest at home for the next 24 hours or until you feel better. Hand washing with soap and water is the best way to prevent the spread of infection. Wash your hands after touching anyone who is sick. Wash your hands after using the toilet and before meals. Clean the toilet after each use. Caffeine, tobacco, and alcohol can make your diarrhea, cramping, and pain worse. Diet Water and clear liquids are important so you do not get dehydrated. Drink a small amount at a time. Don't force yourself to eat, especially if you have cramps, vomiting, or diarrhea. When you finally decide to start eating, do not eat large amounts at a time, even if you are hungry. If you eat, avoid fatty, greasy, spicy, or fried foods. Don't eat dairy products if you have diarrhea; they can make the diarrhea worse. During the first 24 hours (the first full day), follow the diet below: Beverages: Water, clear liquids, soft drinks without caffeine, like tiffanie angie; mineral water (plain or flavored); decaffeinated tea and coffee. Soups: Clear broth, consomm , and bouillon sports drinks aren't a good choice because they have too much sugar and not enough electrolytes. In this case, commercially available products called oral rehydration solutions are best. Desserts: Plain gelatin, ice pops, and fruit juice bars During the next 24 hours (the second day), you may add the following to the above if you have improved. If not, continue what you did the first day: Hot cereal, plain toast, bread, rolls, crackers Plain noodles, rice, mashed potatoes, chicken noodle or rice soup Unsweetened canned fruit and bananas (don't eat pineapple or citrus) Limit caffeine and chocolate. No spices or seasonings except salt. During the next 24 hours Gradually resume a normal diet, as you feel better and your symptoms improve. If at any time your symptoms start getting worse, go back to clear liquids until you feel better. Food preparation If you have diarrhea, you should not prepare food for others. When you prepare food for yourself, wash your hands before and after. Wash your hands after using cutting boards, countertops, and knives that have been in contact with raw food. Keep uncooked meats away from cooked and oyawo-bs-ssp foods. Follow-up care Follow up with your healthcare provider if you are not improving over the next 2 to 3 days, or as advised. If a stool (diarrhea) sample was taken, call for the results as directed. Call 911 Call 911 if any of these occur: Trouble breathing Chest pain Confusion Severe drowsiness or trouble awakening Seizure Stiff neck When to seek medical advice Call your healthcare provider right away if any of these occur: Increasing belly pain or constant lower right belly pain Continued vomiting (unable to keep liquids down) Frequent diarrhea (more than 5 times a day) Blood in vomit or stool (black or red color) Inability to tolerate solid food after a few days. Dark urine, reduced urine output Weakness, dizziness Drowsiness Fever of 100.4 F (38.0 C) or higher, or as directed by your healthcare provider Arie cerda [employer]. [address] [place] [address]. All rights reserved. This information is not intended as a substitute for professional medical care. Always follow your healthcare professional's instructions. Diet for Vomiting or Diarrhea (Adult) Your symptoms may return or get worse after eating certain foods listed below. If this happens, stop eating these foods until your symptoms ease and you feel better. Once the vomiting stops, follow the steps below. During the first 12 to 24 hours During the first 12 to 24 hours, follow this diet: Drinks. Plain water, sport drinks like electrolyte solutions, soft drinks without caffeine, mineral water (plain or flavored), clear fruit juices, and decaffeinated tea and coffee. Soups. Clear broth. Desserts. Plain gelatin, popsicles, and fruit juice bars. As you feel better, you may add 6 to 8 ounces of yogurt per day. If you have diarrhea, don't have foods or drinks that contain sugar, high-fructose corn syrup, or sugar alcohols. During the next 24 hours During the next 24 hours you may add the following to the above: Hot cereal, plain toast, bread, rolls, and crackers Plain noodles, rice, mashed potatoes, and chicken noodle or rice soup Unsweetened canned fruit (but not pineapple) and bananas Don't eat more than 15 grams of fat a day. Do this by staying away from margarine, butter, oils, mayonnaise, sauces, gravies, fried foods, peanut butter, meat, poultry, and fish. Don't eat much fiber. Stay away from raw or cooked vegetables, fresh fruits (except bananas), and bran cereals. Limit how much caffeine and chocolate you have. Do not use any spices or seasonings except salt. During the next 24 hours Slowly go back to your normal diet, as you feel better and your symptoms ease. [employer]. [address] [place] [address]. All rights reserved. This information is not intended as a substitute for professional medical care. Always follow your healthcare professional's instructions. Additional Information VACCINATE! IT SAVES LIVES! Members of the community who have not yet received the COVID-19 vaccine and would like to receive it can visit one of [facility] vaccine clinics. There are many vaccine clinic locations within the [facility]. For locations and available times, please visit [email or web address] It is important to note that some COVID mobile vaccine clinics are held outdoors and may be canceled in rainy or stormy conditions. To learn more about pediatric vaccinations (ages 5-11), we invite you to visit the [facility] webpage. [email or web address] [email or web address]-Freq [email or web address] To learn more about the COVID-19 vaccine, we invite you to visit the CDC website for a list of frequently asked questions. https://www.cdc.gov/coronavirus/ 2019-ncov/vaccines/faq.html [facility] Patient Portal Access Instructions: Stay connected with your healthcare team and access your personal medical information anytime with the [facility] Patient Portal. If you would like a full copy of your medical records please contact the [facility] Medical Records Department Wednesday through Wednesday between 8a.m. and 4:30p.m. Please follow the directions below to access the portal: 1.Access the email account you provided upon registration to the hospital.2.Look for an invitation email from [facility].3.Open the email and access the invitation link: Accept Invitation to [facility]4.Fill in the required marshall to create your account. Sign into [email or web address] with your username and password that you created in the above steps to stay up to date. You can then view a summary of results, a summary of your visits, and the ability to download your summaries to your computer or send the information securely to a physician. Remember that your healthcare information is confidential, so carefully consider who you will allow to register on the [facility] Patient Portal for access to your information. You can also access the [facility] Patient Portal on the [employer] sara. Simply click on Health Records under Health Data and then click on the [employer] logo. HOW TO SAFELY DISPOSE OF PRESCRIPTION MEDICATIONS Please use one of the following methods to safely dispose of your unused medications. 1.Use a drug disposal kit: the drug disposal pouch allows you to safely discard your old and unused drugs. Ask your nurse to give you one when you are discharged.2.Visit a local take-back location: Many local pharmacies and police departments have programs that collect old and unwanted prescription drugs. Call your local pharmacy or go to http://7Summits.SpendCrowd/9R9Qe1x to find one close to you.3.Make use of household items: Use cat litter or old coffee grounds to dispose medications if other options are not available. Mix your drugs with these household products, seal them in an airtight container and throw it into the garbage. Call [facility]: [phone] to be sure your drugs can be disposed of in this way. Some medicines may require a different approach.4.Never flush your medications down the toilet. IF YOU HAVE BEEN PRESCRIBED AN OPIOIDS FOR PAIN If you have been prescribed an opioid (such as hydrocodone, oxycodone or morphine), it is critical to understand the possible side effects and risks of opioid pain medications. Even when taken as directed, opioids can have several side effects including: Tolerance, meaning you might need to take more of a medication for the same pain relief. Nausea, vomiting and/or constipation. Sleepiness, dizziness, dry mouth, confusion, depression or itching. Physical dependence, meaning you have withdrawal symptoms when a medication is stopped ? this can develop within a few days. KNOW YOUR RESPONSIBILITIES It is important to know exactly how much and how often to take the opioid pain medications you are prescribed. Never take opioids in higher amounts or more often than prescribed. Do not combine opioids with alcohol or other drugs that cause drowsiness, such as benzodiazepines, also known as benzos, including diazepam and alprazolam, muscle relaxants or sleep aids. Never sell or share prescription opioids. This is illegal. Store opioids in a secure place and out of reach of others (including children, family, friends and visitors). The last page(s) of this document has been signed and retained as a CHART COPY Signatures Patient Education Materials Gastroenteritis, Noninfectious Diet for Vomiting or Diarrhea (Adult) Medication Leaflets dicyclomine (oral/injection), ondansetron (oral) My discharge plan and instructions have been reviewed and explained to me and IKEESHA TYLER understand my current condition and have read and understand these discharge instructions. I have received a written copy of the plan/instructions. If I have questions, I am aware that I should contact my doctor. Patient/Legal Secretary Signature: Date/Time: Relationship to Patient: Witness Name/Signature: Date/Time: [facility] 01-15-2023 Note ORIGINAL EXAMINATION: CT OF THE ABDOMEN AND PELVIS WITH CONTRAST 01/15/2023 4:27 pm TECHNIQUE: CT of the abdomen and pelvis was performed with the administration of intravenous contrast. Multiplanar reformatted images are provided for review. Automated exposure control, iterative reconstruction, and/or weight based adjustment of the mA/kV was utilized to reduce the radiation dose to as low as reasonably achievable. COMPARISON: 12/12/2014 HISTORY: ORDERING SYSTEM PROVIDED HISTORY: Reason for Exam: pain FINDINGS: Lower Chest: Normal heart size. No focal consolidation or pleural effusion. Organs: The liver measures hypoattenuating, consistent with hepatic steatosis. And biliary tract appears normal. The spleen appears normal. The pancreas appears normal. The adrenal glands appear normal. There is small nonobstructive renal stones bilaterally. Normal renal enhancement. No hydronephrosis.. GI/Bowel: There is mild thickening versus under distension of the colon. There is no evidence of obstruction. The appendix is normal. Pelvis: There is mild bladder wall thickening versus underdistention. The pelvic organs appear normal. Peritoneum/Retroperitoneum: There is no intraperitoneal free air or ascites. The aorta and its major branches appear normal. No lymphadenopathy is identified. Bones/Soft Tissues: No focal bone or soft tissue abnormality is seen. IMPRESSION: 1. Mild thickening versus underdistension of the colon. Please correlate with symptomatology and consider correlation with endoscopy as this could possibly be seen in colitis. 2. Mild bladder wall thickening as may be seen in cystitis versus underdistension. Please correlate with urinalysis. 3. Hepatic steatosis. Interpreted by: Ajay Middleton Preliminary Report By: Ajay Middleton Electronically signed By Ajay Middleton Dictated Date: 01/15/2023 4:37:52 PM Prelim Date: 01/15/2023 4:49:16 PM Sign Date: 01/15/2023 4:49:16 PM Ordering Provider: [facility] 01-15-2023 Note ORIGINAL EXAMINATION: ONE XRAY VIEW OF THE CHEST 01/15/2023 4:25 pm COMPARISON: CT chest December 12, 2014 HISTORY: ORDERING SYSTEM PROVIDED HISTORY: Reason for Exam: Syncopal episode at work FINDINGS: The cardiomediastinal silhouette appears normal. There is no focal consolidation. There is no pulmonary edema. There is no evidence of pleural effusion. There is no evidence of pneumothorax. No fracture is identified. IMPRESSION: No acute abnormality is identified. Interpreted by: Ajay Middleton Preliminary Report By: Ajay Middleton Electronically signed By Ajay Middleton Dictated Date: 01/15/2023 4:32:05 PM Prelim Date: 01/15/2023 4:33:17 PM Sign Date: 01/15/2023 4:33:17 PM Ordering Provider: [facility] 03-10-2022 Miscellaneous Notes Patient notified.Karen Lundberg LPN Please notify of negative covid test. Continue comfort measures for symptoms as you would for a cold. Any worsening symptoms follow up with PCP or ER. Sima Trevino APRN.FLOR documented in this encounter [facility] 03-09-2022 Influenza virus A and B RNA and SARS-CoV-2 (COVID-19) N gene panel BRIANNA+probe (Resp) COVID 19 RESULT: SARS-CoV-2 (Agent of COVID-19) Not Detected by RT-PCR or equivalent method. dary IBFJ-PhG-4_[employer] (EZEQUIEL)_EUA This test was developed and its performance characteristics determined by [facility]'s [facility]. This test has been authorized by FDA under an Emergency Use Authorization (EUA). This test has been validated in accordance with the FDA's Guidance Document Policy for Diagnostics Testing in Laboratories Certified to Perform High Complexity Testing under CLIA prior to Emergency use Authorization for Coronavirus Disease 2019 during the Public Health Emergency issued on May 20, 2019. Test performed by [facility], [facility], [facility] [place] [address]. INFLUENZA A PCR: Negative for Influenza A by RT-PCR INFLUENZA B PCR: Negative for Influenza B by RT-PCR [facility] Blister- Primary Other, multiple, and unspecified sites, blister, without mention of infection documented in this encounter [facility] Summary Purpose Family History No Family History Records FoundNo Family History Records Found No data available for this section No Family History Records Found Advance Directives No Advanced Directives Records FoundNo Advanced Directives Records FoundNo Advanced Directives Records Found Health Concerns Infection Onset Date Last Indicated Resolved Time COVID-19 Rule-Out 03/09/2022 03/09/2022 03/10/2022 7:35 AM EST Additional Source Comments (unrecognized sect ion and content) No Status Records FoundNo Status Records FoundNo Status Records Found INFORMATION SOURCE (unrecogn ized section and content) DATE CREATED AUTHOR AUTHOR'S ORGANIZ ATION 03/14/2022 [facility] DATE CREATED AUTHOR AUTHOR'S ORGANIZ ATION 01/23/2023 [facility] ([place]) Source Comments (unrecognize d section and content) In the event this informatio n is protected by the Federal Confidentiality of Alcohol and Drug Abuse Patient Records regulations: The Federal rules restrict any use of the information to criminally investigate or prosecute any alcohol or drug abuse patient.[facility] the event this information is protected by the Federal Confidentiality of Alcohol and Drug Abuse Patient Records regulations: The Federal rules restrict any use of the information to criminally investigate or prosecute any alcohol or drug abuse patient.[facility] System[facility] the event this information is protected by the Federal Confidentiality of Alcohol and Drug Abuse Patient Records regulations: The Federal rules restrict any use of the information to criminally investigate or prosecute any alcohol or drug abuse patient.[facility] Reason for Visit (unrecogniz ed section and content) Reason Comments Rash left side back of ne ck x 3-4 days, itching Reason Comments Results Care Teams (unrecognized sec tion and content) Databases Computer Consultant Relationship Specialty Start Date End Date Tim Barreto MD [address] [place] [id number] PCP - General Family Medicine 02/16/18 FOR RECORDS PERTAINING TO PATIENTS WHO ARE OR HAVE BEEN ENROLLED IN A CHEMICAL DEPENDENCY/SUBSTANCEABUSE PROGRAM, SOME INFORMATION MAY BE OMITTED. This clinical summary was aggregated from multiple sources. Caution should be exercised in using it in the provision of clinical care. This summary normalizes information from multiple sources, and as a consequence, information in this document may materially change the coding, format and clinical context of patient data. In addition, data may be omitted in some cases. CLINICAL DECISIONS SHOULD BE BASED ON THE PRIMARY CLINICAL RECORDS. [facility]. provides no warranty or guarantee of the accuracy or completeness of information in this document.
[2023-03-27] MEDS: Famotidine 200 MG/20 ML MDV 20 MG in 0.9% Normal Saline (Pres. free 8 ML 300 MG IV (19:44)
[2023-03-27] MEDS: DiphenhydrAMINE 50 MG/ML Syringe IV (19:44)
[2023-03-27] MEDS: Dicyclomine 20 MG/2 ML Vial IM (19:44)
[2023-03-27 19:54] LABS: AST(SGOT) 16 U/L (15-37); Alanine Aminotransfer ALT/SGPT 32 U/L (16-61); Alkaline Phosphatase 94 U/L (45-117); Anion Gap 9 (5-15); BUN 18 mg/dL (7-18); BUN/Creat Ratio 14.8 RATIO (10-20); Calcium,Total 9.9 mg/dL (8.5-10.1); Chloride 104 mmol/L (98-107); Creatinine, Serum 1.22 mg/dL (0.70-1.30); EST Glomerular Filtration Rate 74 mL/min (>60); Est Glom Filt Rate - Afr Amer 89 mL/min (>60); Estimated Creatinine Clearance 87.73 ml/min; Globulin 4.1 g/dL (2.2-4.2); Glucose 126 mg/dL (74-106); Lipase 18 U/L (13-75); Potassium 3.6 mmol/L (3.5-5.1); Protein, Total 8.1 g/dL (6.4-8.2); Sodium Level 136 mmol/L (136-145)
== END 2023-03-27 20:47 | disposition home or self-care (01) ==
PROVIDERS: Emergency Provider Emergency Medicine; PCP Internal Medicine; Visit Provider Emergency Medicine
DX: U07.1 COVID-19 (principal); R11.2 Nausea with vomiting, unspecified; R10.84 Generalized abdominal pain; F17.220 Nicotine dependence, chewing tobacco, uncomplicated; R19.7 Diarrhea, unspecified
CPT/HCPCS: 80053; 83690; 85025; 96361; 96372; 96374; 96375; 99283; J7030; A4216; J3490

== ENCOUNTER 2023-09-03 02:27 | Emergency (ER) | payer BC, SELFPAY ==
[2023-09-03 02:27] VITALS: BP 130/98; PULSE 70; RESP 16; TEMP 36.4; O2SAT 98; BMI 28.2
--- NOTE | 2023-09-03 02:49 | CT_ITS ---
INDICATION: flank pain EXAMINATION: CT ABDOMEN AND PELVIS WITHOUT CONTRAST - CT Abdomen And Pelvis W/O Contrast Injection TECHNIQUE: Helically acquired images were obtained of the abdomen and pelvis without oral or IV contrast. A radiation dose optimization technique was used for this scan. IV Contrast dosage and agent: None. Oral contrast: None. RADIATION DOSAGE (If Supplied By Facility): CTDIvol = ( 7.96 ) mGy, DLP = ( 425.73 ) mGycm COMPARISON: No relevant prior comparison study available FINDINGS: LOWER CHEST: Lung bases are clear. No cardiomegaly or pericardial effusion. LIVER: The liver is normal in size, shape, and attenuation. No focal mass. GALLBLADDER AND BILIARY TREE: The gallbladder is normally distended. No gallstones. No gallbladder wall thickening or edema. No intra- or extrahepatic biliary ductal dilation. PANCREAS: No focal cystic or solid mass. SPLEEN: Normal size without focal cystic or solid mass. ADRENAL GLANDS: No nodules. KIDNEYS AND URETERS: Normal renal size and position. Mild right hydroureteronephrosis. 0.5 cm calculus at the right ureterovesicular junction. There are at least 4 left sided renal calculi measuring up to 0.3 cm. PERITONEUM: No ascites or free air. No other fluid collection. BOWEL: The stomach is unremarkable. Normal caliber small bowel. No obstruction. No colonic wall thickening or inflammatory changes. No evidence of acute appendicitis. LYMPH NODES: No enlarged mesenteric or retroperitoneal lymph nodes. VESSELS: Aorta is non-dilated. URINARY BLADDER: Decompressed. REPRODUCTIVE ORGANS: No pelvic masses. ABDOMINAL WALL: There is a 9 x 4 cm intramuscular lipoma at the left gluteus region. BONES: No acute or suspicious osseous abnormality. CT/Abdomen/Pelvis without Cont IMPRESSION: Mild right hydroureteronephrosis with a 0.5 cm calculus at the right ureterovesicular junction. Multiple nonobstructing left-sided renal calculi. Intramuscular lipoma in the left gluteal region. Electronically Signed: Efraín Lopez MD at 4:18 EDT ,
[2023-09-03] MEDS: Ketorolac 30 MG/ML Syringe IV (03:07)
[2023-09-03] MEDS: 0.9% Normal Saline (1000mL) 1,000 ML 999 ML IV (03:07)
[2023-09-03 03:12] LABS: Mucous, Urine 0 SEEN /hpf (<or=2+); Squamous Epithelial Cells - UA 0 SEEN /hpf (0-5)
[2023-09-03 03:14] LABS: Absolute Lymphocyte Count 1.63 X10^3/uL (0.83-4.51); Absolute Neutrophil Count 7.2 X10^3/uL (2.0-7.7); Basophil# 0.07 X10^3/uL; Basophil% 0.7 % (0-1); Eosinophil# 0.13 X10^3/uL; Eosinophils% 1.3 % (0-5); Hematocrit 46.6 % (40-54); Lymphocyte # 1.63 X10^3/ul (0.83-4.51); Lymphocyte % 16.3 % (19-41); Mean Corp Hgb Conc 32.2 g/dL (32-36); Mean Corpuscular Hgb 28.6 pg (27.0-32.0); Mean Corpuscular Volume 88.8 fL (80-94); Mean Platelet Vol. 11.6 fl (6.2-12.0); Monocyte# 0.78 X10^3/uL; Monocyte% 7.8 % (0-10); NRBC Flagged by Analyzer 0 % (0-5); Neutrophil # 7.22 X10^3/uL (2.7-7.7); Neutrophil % 72.4 % (47-70); Platelet Count 228 K/mm3 (150-450); RBC Distribution Width CV 12.7 % (11.6-14.6); RBC Distribution Width SD 41.5 fl (35.1-43.9); Red Blood Count 5.25 M/mm3 (4.6-6.2)
[2023-09-03 03:15] LABS: Color, Urine Straw (Yellow); Glucose, Dipstick Normal (Normal); Ketone-Dipstick 5 mg/dl (Negative); Leukocyte Esterase-Dipstick 25 /ul (Negative); Nitrite-Dipstick Positive (Negative); Occult Blood-Urine 250 /ul (Negative); Protein-Dipstick 100 mg/dl (Negative); Specific Gravity, Urine 1.025 (1.002-1.030); Urine Bilirubin Dipstick Negative (Negative); Urine Clarity Turbid (Clear); Urine Urobilinogen 1 mg/dl (Normal)
[2023-09-03 03:27] LABS: Anion Gap 0 (5-15); BUN 12 mg/dL (7-18); Calcium,Total 9.5 mg/dL (8.5-10.1); Chloride 107 mmol/L (98-107); Creatinine, Serum 1.09 mg/dL (0.70-1.30); EST Glomerular Filtration Rate 83 mL/min (>60); Est Glom Filt Rate - Afr Amer 101 mL/min (>60); Estimated Creatinine Clearance 107.08 ml/min; Glucose 105 mg/dL (74-106); Potassium 4.3 mmol/L (3.5-5.1); Sodium Level 142 mmol/L (136-145)
[2023-09-03 03:38] LABS: Amorphous Sediment 1+; Bacteria 3+ /hpf (None Seen); Red Blood Cells-Urine 25-50 SEEN /hpf (0-5); White Blood Cells 0-5 SEEN /hpf (0-5)
[2023-09-03 04:27] VITALS: PULSE 66
--- NOTE | 2023-09-03 04:36 | EDS_ITS ---
HPI History of Present Illness Chief Complaint: Complaint Informant: patient Narrative Narrative: Patient is a 32-year-old male with past medical history of anxiety and depression as well as hyperlipidemia. He states that there has been no recent trauma or excessive activity but he noticed in the last 24 hours he developed right-sided back/flank pain that was sharp in nature. He states that there was no improvement or worsening with motion or rest. He states that the pain increased this evening/morning and he urinated and there was blood and he had concern for potential kidney stone and secondary to this comes in for evaluation. Patient denies any penile discharge or concern for STD [facility] Medical History Hypersomnia Chronic pain Bilateral knee pain Shoulder pain Low back pain Tinnitus Insomnia History of psychiatric hospitalization PTSD (post-traumatic stress disorder) Anxiety and depression Home Medications ?Medication ?Instructions ?Recorded ?Last Taken ?Type NK 09/03/23 Unknown History cephalexin 500 mg capsule 500 mg PO TID 7 days #21 caps 09/03/23 Unknown Rx ketorolac 10 mg tablet 10 mg PO 4X/DAY PRN pain 5 days 09/03/23 Unknown Rx #20 tabs oxycodone-acetaminophen 5 mg-325 1 tab PO Q6H PRN pain 3 days #12 09/03/23 Unknown Rx mg tablet (Percocet) tabs tamsulosin 0.4 mg capsule (Flomax) 0.4 mg PO DAILY #14 caps 09/03/23 Unknown Rx Allergy/AdvReac Type Severity Reaction Status Date / Time No Known Allergies Allergy Verified 09/03/23 02:28 Family History Father Anxiety Depression Mother Anxiety Depression Alcoholism in family Uncle Alcoholism in family Brother Alcoholism in family Surgical History History of tonsillectomy Social History Smoking Status: Never smoker Smokeless tobacco user: chewing tobacco 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 substance use type: does not use what type of physical activity do you participate in: other details: active job with heavy lifting ROS ROS ED Constitutional Constitutional ED: Denies chills or fever(s) ENT ENT ED: Denies sore throat Cardiovascular Cardiovascular: Denies chest pain Respiratory/Chest Respiratory/Chest: Denies cough or dyspnea Gastrointestinal Gastrointestinal: Reports abdominal pain; Denies diarrhea, nausea or vomiting Genitourinary Genitourinary ED: Reports hematuria; Denies dysuria or urinary frequency Musculoskeletal Musculoskeletal: Reports back pain Integumentary Denies rash Neurologic Neurologic: Denies headache(s) Hematologic/Lymphatic Hematologic/Lymphatic: Denies easy bleeding or easy bruising EXAM Physical Exam Const Vital Signs: 09/03/23 02:27 Temperature 97.6 F L Temperature Source Temporal Pulse Rate 70 Respiratory Rate 16 Blood Pressure 130/98 H Blood Pressure Mean 108 Pulse Ox 98 Oxygen Delivery Method Room Air Positive well nourished and well developed General Appearance ED: well developed; Negative for pallor HEENT HEENT Narrative: Normocephalic atraumatic Eyes PERRL and EOMs intact bilaterally General Eye ED: Negative for scleral icterus Neck supple Resp normal respiratory effort and clear to auscultation bilaterally Cardio regular rate and regular rhythm GI non-distended and no masses GI Narrative: Abdomen is soft and nondistended with normal active bowel sounds. Patient has pain with palpation in the right lower abdomen near the UVJ. No voluntary guarding or rigidity. No pulsatile mass or fluid wave Auscultation: normoactive bowel sounds Palpation: soft Back/Spine Back/Spine Narrative: Positive right CVA pain noted Extremity normal to inspection Neuro oriented x3, CN's II-XII intact bilaterally and no sensory deficits noted Sensorium / Orientation: alert Motor Exam: strength 5/5 throughout Psych mental status grossly normal Skin no rashes or lesions noted and no wounds General Skin Exam: Negative for jaundice or pallor MDM MDM MDM Narrative Medical decision making narrative: Patient presented to the ER mildly hypertensive otherwise with stable vitals. He reported right-sided flank/back pain that was sharp in nature with hematuria. Differential diagnosis is for kidney stone versus UTI versus pyelonephritis versus prostatitis versus cauda equina versus epidural abscess. Patient denies any IV drug use and has not had loss of bowel or bladder control and therefore I have low concern for cauda equina or epidural abscess. He denies any penile discharge or concern for STD. As most likely diagnosis is kidney stone basic labs and a noncontrast CT were obtained. Patient CT scan confirms a 5 mm stone at the distal UVJ which correlates with his physical exam and history. He does not have findings to suggest acute kidney injury and urine shows questionable infection with +3 bacteria but no white cells. At this time he does not show signs of urosepsis and his pain is well-controlled and therefore he is safe for discharge and can follow-up with urology on an outpatient basis History & Record Review Discussion w/independent historian: Patient Lab Data Attestation: I reviewed the patient's lab results. Labs: Laboratory Results - last 24 hr 09/03/23 09/03/23 03:03 03:07 WBC 10.0 RBC 5.25 Hgb 15.0 Hct 46.6 MCV 88.8 MCH 28.6 MCHC 32.2 RDW Std Deviation 41.5 RDW Coeff of Elieser 12.7 Plt Count 228 MPV 11.6 Immature Gran % (Auto) 1.500 H Neut % (Auto) 72.4 H Lymph % (Auto) 16.3 L [place] % (Auto) 7.8 Eos % (Auto) 1.3 Baso % (Auto) 0.7 Absolute Neuts (auto) 7.2 Absolute Lymphs (auto) 1.63 Nucleated RBC % 0 Sodium 142 Potassium 4.3 Chloride 107 Carbon Dioxide 35.0 H Anion Gap 0 L BUN 12 Creatinine 1.09 Estim Creat Clear Calc 107.08 Est GFR (MDRD) Af Amer 101 Est GFR (MDRD) Non-Af 83 BUN/Creatinine Ratio 11.0 Glucose 105 Calcium 9.5 Urine Color Straw Urine Clarity Turbid Urine pH 5.0 Ur Specific [place] 1.025 Urine Protein 100 H Urine Glucose (UA) Normal Urine Ketones 5 H Urine Occult Blood 250 H Urine Nitrite Positive H Urine Bilirubin Negative Urine Urobilinogen 1 H Ur Leukocyte Esterase 25 H Urine RBC 25-50 SEEN Urine WBC 0-5 SEEN Ur Squamous Epith Cells 0 SEEN Amorphous Sediment 1+ Urine Bacteria 3+ Urine Mucus 0 SEEN Radiography Diagnostic Testing: Clinical Impression(s) from Imaging Studies Abdomen/Pelvis CT 09/03/23 02:49 IMPRESSION: Mild right hydroureteronephrosis with a 0.5 cm calculus at the right ureterovesicular junction. Multiple nonobstructing left-sided renal calculi. Intramuscular lipoma in the left gluteal region. Electronically Signed: Efraín Lopez MD at 4:18 EDT , Discharge Plan Triage Chief Complaint: Complaint ED Provider: John Hall Dx/Rx/DC Orders Clinical Impression: Kidney stone on right side, Renal colic, Anxiety and depression, Hyperlipidemia Instructions: ED Kidney Stone with Pain Prescriptions: New tamsulosin [Flomax] 0.4 mg capsule 0.4 mg PO DAILY Qty: 14 0RF cephalexin 500 mg capsule 500 mg PO TID 7 Days Qty: 21 0RF ketorolac 10 mg tablet 10 mg PO 4X/DAY PRN (Reason: pain) 5 Days Qty: 20 0RF oxycodone-acetaminophen [Percocet] 5-325 mg tablet 1 tab PO Q6H PRN (Reason: pain) 3 Days Qty: 12 0RF No Action NK Stand Alone Forms: ED Work / School Excuse Primary Care Provider: Nikhil Mayer Referrals: Nikhil Mayer MD [Primary Care Provider] - Alden Goldman MD [Med Staff - Active Staff] - Activity Restrictions/Additional Instructions: Please take your medications as directed to help control your pain stay active and hydrated to help pass your stone. Follow-up with urology for repeat evaluation and return to the ER if your pain is not controlled or you develop a fever over 100.4. Print Language: Hebrew Disposition Disposition: Home, Self Care
[2023-09-03 04:52] VITALS: BP 123/82; PULSE 66; RESP 16; TEMP 36.2; O2SAT 100
== END 2023-09-03 04:54 | disposition home or self-care (01) ==
PROVIDERS: Emergency Provider Emergency Medicine; PCP Internal Medicine; Visit Provider Emergency Medicine
DX: N13.2 Hydronephrosis with renal and ureteral calculous obstruction (principal); F32.A Depression, unspecified; E78.5 Hyperlipidemia, unspecified; F41.9 Anxiety disorder, unspecified; N23 Unspecified renal colic; F17.220 Nicotine dependence, chewing tobacco, uncomplicated; R31.9 Hematuria, unspecified
CPT/HCPCS: 74176; 80048; 81001; 85025; 96361; 96374; 99283; J7030; A4216

== ENCOUNTER 2023-09-12 08:47 | Observation (INO) | payer BC, SELFPAY ==
[2023-09-12] VITALS (8 sets, daily range): BP systolic 99–155; BP diastolic 52–89; PULSE 50–70; RESP 14–25; TEMP 35.9–37.1; O2SAT 96–100; BMI 27.1; BMI 28.0
--- NOTE | 2023-09-12 09:06 | EKG12_ITS ---
Test Reason : FLANK PAIN Blood Pressure : / mmHG Vent. Rate : 049 BPM Atrial Rate : 049 BPM P-R Int : 142 ms QRS Dur : 106 ms QT Int : 428 ms P-R-T Axes : 041 043 032 degrees QTc Int : 386 ms Sinus bradycardia with marked sinus arrhythmia Otherwise normal ECG Confirmed by Jonah Cortés ([id number]), news editor ALYX CORREIA ([id number]) on 09/14/2023 7:58:50 AM Referred By: Confirmed By:Jonah Cortés
--- NOTE | 2023-09-12 09:13 | EX.ED.DYSGE1 ---
HPI History of Present Illness Chief Complaint: Flank Pain Informant: patient Narrative Narrative: Patient presents with multiple complaints. He complains of abdominal pain with nausea and vomiting as well as feeling dehydrated and tired. 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 He had to leave work early today. He feels lightheaded and dizzy along with some tingling. He has a at home and states he is only been sleeping 1 or 2 hours a night. Patient was recently seen for a kidney stone. He states he believes he passed the stone on the right but is still having abdominal pain. When I asked him to point to the area of pain he points to the epigastric region. [facility] Medical History (Updated 09/12/23 @ 17:[address] Tasha Carrizales MD) Kidney stones Hypersomnia Chronic pain Bilateral knee pain Shoulder pain Low back pain Tinnitus Insomnia History of psychiatric hospitalization PTSD (post-traumatic stress disorder) Anxiety and depression Home Medications ?Medication ?Instructions ?Recorded ?Last Taken ?Type NK 09/03/23 Unknown History cephalexin 500 mg capsule 500 mg PO TID 7 days #21 caps 09/03/23 Unknown Rx ketorolac 10 mg tablet 10 mg PO 4X/DAY PRN pain 5 days 09/03/23 Unknown Rx #20 tabs oxycodone-acetaminophen 5 mg-325 1 tab PO Q6H PRN pain 3 days #12 09/03/23 Unknown Rx mg tablet (Percocet) tabs tamsulosin 0.4 mg capsule (Flomax) 0.4 mg PO DAILY #14 caps 09/03/23 Unknown Rx Allergy/AdvReac Type Severity Reaction Status Date / Time No Known Allergies Allergy Verified 09/12/23 09:06 Family History Father Anxiety Depression Mother Anxiety Depression Alcoholism in family Uncle Alcoholism in family Brother Alcoholism in family Surgical History History of tonsillectomy Social History Smoking Status: Never smoker Smokeless tobacco user: chewing tobacco 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 substance use type: does not use what type of physical activity do you participate in: other details: active job with heavy lifting ROS ROS ED Constitutional Constitutional ED: Denies chills or fever(s) Eyes Eyes: Denies discharge from eye(s) ENT ENT ED: Denies discharge from eye(s), rhinorrhea or sore throat Cardiovascular Cardiovascular: Reports chest pain; Denies palpitations Respiratory/Chest Respiratory/Chest: Denies cough or dyspnea Gastrointestinal Gastrointestinal: Reports abdominal pain, nausea and vomiting; Denies diarrhea Genitourinary Genitourinary ED: Denies dysuria Musculoskeletal Musculoskeletal: Denies back pain or extremity pain Integumentary Denies Abrasions or rash Neurologic Neurologic: Reports paresthesias and weakness; Denies headache(s) Psychiatric Psychiatric: Reports anxiety; Denies depression Allergic/Immunologic Allergic/Immunologic ED: Denies lip swelling or urticaria EXAM Physical Exam Const Vital Signs: 09/12/23 08:48 09/12/23 10:48 09/12/23 12:00 Temperature 96.6 F L Temperature Source Temporal Pulse Rate 70 62 50 L Respiratory Rate 18 25 H 16 Blood Pressure 125/83 H 155/89 H 113/78 Blood Pressure Mean 97 111 89 Pulse Ox 98 100 100 Oxygen Delivery Method Room Air 09/12/23 14:00 09/12/23 16:00 Temperature Temperature Source Pulse Rate 53 L 65 Respiratory Rate 16 18 Blood Pressure 117/78 103/73 Blood Pressure Mean 91 83 Pulse Ox 98 97 Oxygen Delivery Method Room Air Room Air Positive well nourished and well developed General Appearance ED: well developed HEENT Reports dry mucous membranes Mouth ED: Yes dry mucous membranes Mouth: dry mucous membranes Eyes EOMs intact bilaterally Chest Wall inspection of chest normal and palpation of chest normal Resp normal respiratory effort and clear to auscultation bilaterally Cardio regular rate and regular rhythm GI GI Narrative: Abdomen soft with focal tenderness in the epigastrium. No guarding or rebound. No palpable masses. Extremity normal to inspection Neuro oriented x3 and no sensory deficits noted Motor Exam: strength 5/5 throughout Psych mental status grossly normal Skin no rashes or lesions noted MDM MDM MDM Narrative Medical decision making narrative: Patient given IV fluids along with Toradol and Zofran. Labwork obtained to evaluate for leukocytosis, anemia, and electrolyte derangement. Urinalysis obtained to evaluate for infection/hematuria. EKG obtained to evaluate for cardiac arrhythmia/ischemia. Lab Data Labs: Laboratory Results - last 24 hr 06/23/24 06/23/24 06/23/24 09:15 09:28 09:52 WBC 13.4 H RBC 5.31 Hgb 15.2 Hct 46.1 MCV 86.8 MCH 28.6 MCHC 33.0 RDW Std Deviation 40.0 RDW Coeff of Elieser 12.7 Plt Count 272 MPV 11.8 Immature Gran % (Auto) 1.700 H Neut % (Auto) 81.3 H Lymph % (Auto) 9.6 L [place] % (Auto) 5.8 Eos % (Auto) 0.6 Baso % (Auto) 1.0 Absolute Neuts (auto) 10.9 H Absolute Lymphs (auto) 1.29 Nucleated RBC % 0 Sodium 137 Potassium 3.8 Chloride 103 Carbon Dioxide 26.0 Anion Gap 8 BUN 15 Creatinine 1.16 Estim Creat Clear Calc 95.27 Est GFR (MDRD) Af Amer 94 Est GFR (MDRD) Non-Af 78 BUN/Creatinine Ratio 12.9 Glucose 118 H Calcium 10.0 Total Bilirubin 0.80 Direct Bilirubin 0.22 AST 25 ALT 70 H Alkaline Phosphatase 99 Troponin I High Sens Total Protein 7.9 Albumin 4.3 Globulin 3.6 Lipase 58 Urine Color Yellow Urine Clarity Clear Urine pH 6.0 Ur Specific [place] 1.020 Urine Protein 15 H Urine Glucose (UA) Normal Urine Ketones Negative Urine Occult Blood Negative Urine Nitrite Negative Urine Bilirubin Negative Urine Urobilinogen Normal Ur Leukocyte Esterase 25 H Urine RBC 0 SEEN Urine WBC 0-5 SEEN Ur Squamous Epith Cells 0 SEEN Urine Bacteria 0 SEEN Urine Mucus 0 SEEN POC Glucose 112 H 09/12/23 09/12/23 10:40 12:44 WBC RBC Hgb Hct MCV MCH MCHC RDW Std Deviation RDW Coeff of Elieser Plt Count MPV Immature Gran % (Auto) Neut % (Auto) Lymph % (Auto) [place] % (Auto) Eos % (Auto) Baso % (Auto) Absolute Neuts (auto) Absolute Lymphs (auto) Nucleated RBC % Sodium Potassium Chloride Carbon Dioxide Anion Gap BUN Creatinine Estim Creat Clear Calc Est GFR (MDRD) Af Amer Est GFR (MDRD) Non-Af BUN/Creatinine Ratio Glucose Calcium Total Bilirubin Direct Bilirubin AST ALT Alkaline Phosphatase Troponin I High Sens 3 4 Total Protein Albumin Globulin Lipase Urine Color Urine Clarity Urine pH Ur Specific [place] Urine Protein Urine Glucose (UA) Urine Ketones Urine Occult Blood Urine Nitrite Urine Bilirubin Urine Urobilinogen Ur Leukocyte Esterase Urine RBC Urine WBC Ur Squamous Epith Cells Urine Bacteria Urine Mucus POC Glucose Radiography Diagnostic Testing: Clinical Impression(s) from Imaging Studies Chest/Abdomen/Pelvis CTA 09/12/23 10:28 IMPRESSION: No demonstrated PE, or thoracic aortic aneurysm or dissection No aortic aneurysm or dissection No suspicious solid organ abnormality, previously noted 5 mm right UVJ stone no longer identified. There is no hydronephrosis or hydroureter. No free intraperitoneal fluid, air, or suspicious adenopathy, normal appendix visualized . Electronically Signed: Blair Coello MD at 11:22 EDT , EKG Initial EKG: Attestation: I personally reviewed and interpreted this EKG as follows: Interpretation: Sinus Bradycardia (Sinus bradycardia at 49 bpm. No acute ischemia.) Follow-up EKG: Attestation: I personally reviewed and interpreted this EKG as follows: Interpretation: Sinus Rhythm (Sinus 89 with no acute ischemia.) Treatment and Re-Evaluation :: CBC was a white count of 13.4 with 81% neutrophils. Hemoglobin is 15.2. Chemistry studies are unremarkable. LFTs significant only for an ALT of 70. Lipase is normal at 58. Urinalysis reveals no evidence of infection. Patient did not have pain improvement with the Toradol and Zofran. Nursing staff states that he was continued to have vomiting and was shaking and broken out in a sweat. He was ordered morphine, Reglan, and Benadryl. Shortly after pushing the medication patient started yelling out that he was hit in severe pain in his chest and he could not breathe. His oxygen saturation was 99%. He was placed on nasal cannula. Repeat EKG is obtained and reveals no evidence of acute ischemia. Patient is given IV Ativan, IM Bentyl, and Protonix. He is sent for an emergent CTA of the chest, abdomen, and pelvis to rule out dissection or pulmonary embolism. CTA is unremarkable.Troponin is obtained and returns normal at 3. A 2-hour troponin is obtained and is normal at 4. Patient has been sleeping. He is awoken. He continues to have intermittent vomiting. He has been redosed with Zofran. He continues to vomit despite this. I recommended hospitalization as the patient has not been able to tolerate p.o. at this time. I will speak with hospitalist. Discharge Plan Triage Chief Complaint: Flank Pain ED Provider: Tasha Carrizales Dx/Rx/DC Orders Clinical Impression: Intractable vomiting, Anxiety, Chest pain Prescriptions: No Action NK tamsulosin [Flomax] 0.4 mg capsule 0.4 mg PO DAILY Qty: 14 0RF cephalexin 500 mg capsule 500 mg PO TID 7 Days Qty: 21 0RF ketorolac 10 mg tablet 10 mg PO 4X/DAY PRN (Reason: pain) 5 Days Qty: 20 0RF oxycodone-acetaminophen [Percocet] 5-325 mg tablet 1 tab PO Q6H PRN (Reason: pain) 3 Days Qty: 12 0RF Primary Care Provider: Nikhil Mayer Referrals: Nikhil Mayer MD [Primary Care Provider] - Print Language: Jamaican Disposition Disposition: Acute Care Hospital [facility]
[2023-09-12] MEDS: Ketorolac 15 MG/ML Vial IV (09:18)
[2023-09-12] MEDS: Ondansetron 4 MG/2 ML Vial IV ×2 (09:18→16:22)
[2023-09-12] MEDS: 0.9% Normal Saline (1000mL) 1,000 ML 1000 ML IV (09:19)
[2023-09-12 09:24] LABS: Absolute Lymphocyte Count 1.29 X10^3/uL (0.83-4.51); Absolute Neutrophil Count 10.9 X10^3/uL (2.0-7.7); Basophil# 0.13 X10^3/uL; Eosinophil# 0.08 X10^3/uL; Eosinophils% 0.6 % (0-5); Hematocrit 46.1 % (40-54); Hemoglobin 15.2 g/dL (13.0-16.5); Lymphocyte # 1.29 X10^3/ul (0.83-4.51); Lymphocyte % 9.6 % (19-41); Mean Corpuscular Hgb 28.6 pg (27.0-32.0); Mean Corpuscular Volume 86.8 fL (80-94); Mean Platelet Vol. 11.8 fl (6.2-12.0); Monocyte# 0.78 X10^3/uL; Monocyte% 5.8 % (0-10); NRBC Flagged by Analyzer 0 % (0-5); Neutrophil # 10.93 X10^3/uL (2.7-7.7); Neutrophil % 81.3 % (47-70); Platelet Count 272 K/mm3 (150-450); RBC Distribution Width CV 12.7 % (11.6-14.6); Red Blood Count 5.31 M/mm3 (4.6-6.2); White Blood Count 13.4 K/mm3 (4.4-11.0)
[2023-09-12 09:44] LABS: AST(SGOT) 25 U/L (15-37); Alanine Aminotransfer ALT/SGPT 70 U/L (16-61); Albumin, Serum 4.3 g/dL (3.2-5.0); Alkaline Phosphatase 99 U/L (45-117); Anion Gap 8 (5-15); BUN 15 mg/dL (7-18); BUN/Creat Ratio 12.9 RATIO (10-20); Bilirubin, Direct 0.22 mg/dL (0.00-0.30); Chloride 103 mmol/L (98-107); Creatinine, Serum 1.16 mg/dL (0.70-1.30); EST Glomerular Filtration Rate 78 mL/min (>60); Est Glom Filt Rate - Afr Amer 94 mL/min (>60); Estimated Creatinine Clearance 95.27 ml/min; Globulin 3.6 g/dL (2.2-4.2); Glucose 118 mg/dL (74-106); Lipase 58 U/L (13-75); Potassium 3.8 mmol/L (3.5-5.1); Protein, Total 7.9 g/dL (6.4-8.2); Sodium Level 137 mmol/L (136-145)
[2023-09-12 09:46] LABS: Bedside Glucose 112 mg/dL (74-106)
[2023-09-12 09:56] LABS: Bacteria 0 SEEN /hpf (None Seen); Mucous, Urine 0 SEEN /hpf (<or=2+); Red Blood Cells-Urine 0 SEEN /hpf (0-5); Squamous Epithelial Cells - UA 0 SEEN /hpf (0-5)
[2023-09-12] MEDS: 0.9% Normal Saline (1000mL) 1,000 ML 150 ML IV ×3 (10:04→21:06)
[2023-09-12 10:08] LABS: Color, Urine Yellow (Yellow); Glucose, Dipstick Normal (Normal); Ketone-Dipstick Negative (Negative); Leukocyte Esterase-Dipstick 25 /ul (Negative); Nitrite-Dipstick Negative (Negative); Occult Blood-Urine Negative /ul (Negative); Protein-Dipstick 15 mg/dl (Negative); Urine Bilirubin Dipstick Negative (Negative); Urine Clarity Clear (Clear); Urine Urobilinogen Normal (Normal)
[2023-09-12] MEDS: Metoclopramide 10 MG/2 ML Vial IV (10:17)
[2023-09-12] MEDS: Morphine 4 MG/ML Syringe IV (10:17)
[2023-09-12] MEDS: DiphenhydrAMINE 50 MG/ML Syringe 25 MG IV (10:17)
--- NOTE | 2023-09-12 10:28 | CT_ITS ---
INDICATION: Acute chest and back pain EXAMINATION: CTA CHEST, ABDOMEN AND PELVIS WITH CONTRAST - TECHNIQUE: A CTA of the chest, abdomen, and pelvis is obtained with sagittal and coronal reconstructed MIP views. Three-dimensional surface rendered sequence of the thoracic and abdominal aorta was obtained. A radiation dose optimization technique was used for this scan. 100 mL of [id number]-[id number]. Oral contrast: None. COMPARISON: 09/03/2023 FINDINGS: CT CHEST: THORACIC AORTA: No atheromatous disease, no aneurysmal changes or dissection. ABDOMINAL AORTA: No aneurysm or dissection. No significant atheromatous disease. The iliac arteries are unremarkable. LUNGS: The lungs are well-expanded without acute or chronic changes. No effusions or pneumothorax. MEDIASTINUM: The thyroid gland is normal. No mediastinal or hilar adenopathy. HEART: Heart is normal size. No pericardial effusion. No CAD. CT ABDOMEN AND PELVIS: LIVER: The liver enhances homogeneously. No masses identified. GALLBLADDER: The CBD is normal. Normal gallbladder. SPLEEN: Normal. PANCREAS: No masses or inflammation. ADRENAL GLANDS: Normal. KIDNEYS AND URETERS: The kidneys both enhance appropriately. There are normal size and shape. No hydronephrosis or nephrolithiasis. No renal masses or cysts. Previously noted 5 mm stone at the right UVJ is no longer identified STOMACH: Normal. SMALL BOWEL: No abnormal distention of the small bowel. MESENTERY: No mesenteric inflammation. No ascites. COLON: No significant diverticulosis, masses or inflammation. The colon otherwise is normal. There is a large fatty ileocecal valve. APPENDIX: The appendix is visualized and normal. Appendix seen and coronal reconstructed images 163 through 180 IVC: Normal. RETROPERITONEUM: No retroperitoneal lymphadenopathy. PELVIC STRUCTURES: Normal bladder. Stable left gluteal intramuscular lipoma SOFT TISSUES ABDOMEN: The anterior abdominal wall is normal. SOFT TISSUE CHEST: The extrathoracic soft tissues are normal. BONES: No fractures or significant degenerative disease. CT/CTA Chst, Abd, Pel W and/or WO IMPRESSION: No demonstrated PE, or thoracic aortic aneurysm or dissection No aortic aneurysm or dissection No suspicious solid organ abnormality, previously noted 5 mm right UVJ stone no longer identified. There is no hydronephrosis or hydroureter. No free intraperitoneal fluid, air, or suspicious adenopathy, normal appendix visualized . Electronically Signed: Blair Coello MD at 11:22 EDT ,
--- NOTE | 2023-09-12 10:28 | EKG12_ITS ---
Test Reason : CP Blood Pressure : / mmHG Vent. Rate : 089 BPM Atrial Rate : 089 BPM P-R Int : 140 ms QRS Dur : 098 ms QT Int : 368 ms P-R-T Axes : 062 053 061 degrees QTc Int : 447 ms Normal sinus rhythm with sinus arrhythmia Normal ECG Confirmed by Jonah Cortés ([id number]), web editor ALYX CORREIA ([id number]) on 09/14/2023 7:58:39 AM Referred By: Confirmed By:Jonah Cortés
[2023-09-12 10:31] LABS: White Blood Cells 0-5 SEEN /hpf (0-5)
[2023-09-12] MEDS: LORazepam 2 MG/ML Syringe 1 MG IV (10:32)
[2023-09-12] MEDS: Dicyclomine 20 MG/2 ML Vial IM (10:35)
[2023-09-12 11:00] LABS: Troponin-I HS 3 pg/mL (3.0-78.0)
[2023-09-12] MEDS: Pantoprazole Sodium 40 MG in 0.9% Normal Saline (100mL MB+) 100 ML 330 MG IV ×2 (11:19→21:06)
[2023-09-12 13:09] LABS: Troponin-I HS 4 pg/mL (3.0-78.0)
--- NOTE | 2023-09-12 17:53 | HP.PCM.HOS_ITS ---
HPI - General General Date of Admission: 09/12/23 Date of Service: 09/12/23 Chief Complaint: Epigastric pain, nausea and vomiting HPI Narrative REMI THAO, is a 32 M with a history of anxiety, marijuana use, tobacco use who presented to [facility] ED 09/12/2023 due to epigastric pain and nausea and vomiting. 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 Will get some cold sweats if he is doing certain things and has felt occasionally lightheaded and like he might pass out and reports he does think he is dehydrated and he does not drink a lot of water. Denies diarrhea, aside from epigastric pain no other pain and has never had anything like this before. Smokes marijuana twice daily reports he has a medical marijuana card for his anxiety, denies any other substance use aside from chewing tobacco and denies alcohol. Patient occasionally will have some incomplete feeling of emptying his bladder and occasionally will feel a little bit of burning but this has been improving. Of note he was here 09/02 and found to have UTI and kidney stone and was discharged home due to stability on oral Keflex which he only took several days of, and urinary symptoms have been slowly improving, UA in ED negative for acute infection and kidney stone resolved on CT scan. [facility] Medical History (Updated 09/12/23 @ 18:[address] Genesis Starkey MD) Anxiety and depression Bilateral knee pain Chronic pain History of psychiatric hospitalization Hypersomnia Insomnia Kidney stones Low back pain PTSD (post-traumatic stress disorder) Shoulder pain Tinnitus Home Medications ?Medication ?Instructions ?Recorded ?Last Taken ?Type NK 09/03/23 Unknown History Allergy/AdvReac Type Severity Reaction Status Date / Time No Known Allergies Allergy Verified 09/12/23 09:06 Family History Father Anxiety Depression Mother Anxiety Depression Alcoholism in family Uncle Alcoholism in family Brother Alcoholism in family Surgical History History of tonsillectomy Social History Smoking Status: Never smoker Smokeless tobacco user: chewing tobacco 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 substance use type: does not use what type of physical activity do you participate in: other details: active job with heavy lifting ROS ROS Narrative General: Will break out into a cold sweat sometimes when he is up moving around HENT: Denies headache, has slight stuffy nose but feels that his allergies, denies sore throat EYES: Denies changes in vision Resp: Denies cough, denies shortness of breath Cardiac: Denies chest pain GI: Epigastric pain with nausea and vomiting, no changes in bowels : Occasionally feels he has difficulty emptying his bladder will have a little bit of burning but this has been improving Extremity: Denies swelling MSK: Denies weakness Neuro: Has had a little bit of paresthesias in his fingers that have resolved at this time Heme: Denies any bleeding or bruising Skin: Denies rashes Psychiatric: Very anxious Vital Signs Vital Signs Vital Signs: 09/12/23 08:48 09/12/23 10:48 09/12/23 12:00 Temperature 96.6 F L Temperature Source Temporal Pulse Rate 70 62 50 L Respiratory Rate 18 25 H 16 Blood Pressure 125/83 H 155/89 H 113/78 Blood Pressure Mean 97 111 89 Pulse Ox 98 100 100 Oxygen Delivery Method Room Air 09/12/23 14:00 09/12/23 16:00 09/12/23 17:40 Temperature 98.5 F Temperature Source Pulse Rate 53 L 65 61 Respiratory Rate 16 18 14 Blood Pressure 117/78 103/73 99/69 Blood Pressure Mean 91 83 79 Pulse Ox 98 97 97 Oxygen Delivery Method Room Air Room Air Weight Weight: 85.729 kg Body Mass Index (BMI) 27.1 Physical Exam Narrative General: Alert, oriented, no apparent distress HEENT: Atraumatic, normocephalic Eyes: Anicteric, normal conjunctiva, extraocular movements grossly intact Neck: Supple Respiratory: Clear to auscultation bilaterally, normal respiratory effort Cardiovascular: Regular rate and rhythm GI: Soft, somewhat tender in epigastric region, no rebound, guarding, rigidity Extremities: No edema Musculoskeletal: Moving all extremities Neuro: No overt focal neurological deficits Skin: No rashes appreciated Psych: Somewhat reserved Results Lab / Micro Data 09/12/23 09:15 09/12/23 09:15 Labs: Laboratory Results - last 24 hr 09/12/23 09:15: WBC 13.4 H, RBC 5.31, Hgb 15.2, Hct 46.1, MCV 86.8, MCH 28.6, MCHC 33.0, RDW Std Deviation 40.0, RDW Coeff of Elieser 12.7, Plt Count 272, MPV 11.8, Immature Gran % (Auto) 1.700 H, Neut % (Auto) 81.3 H, Lymph % (Auto) 9.6 L , [place] % (Auto) 5.8, Eos % (Auto) 0.6, Baso % (Auto) 1.0, Absolute Neuts (auto) 10.9 H, Absolute Lymphs (auto) 1.29, Nucleated RBC % 0, Sodium 137, Potassium 3.8, Chloride 103, Carbon Dioxide 26.0, Anion Gap 8, BUN 15, Creatinine 1.16, Estim Creat Clear Calc 95.27, Est GFR (MDRD) Af Amer 94, Est GFR (MDRD) Non-Af 78, BUN/Creatinine Ratio 12.9, Glucose 118 H, Calcium 10.0, Total Bilirubin 0.80, Direct Bilirubin 0.22, AST 25, ALT 70 H, Alkaline Phosphatase 99, Total Protein 7.9, Albumin 4.3, Globulin 3.6, Lipase 58 09/12/23 09:28: POC Glucose 112 H 09/12/23 09:52: Urine Color Yellow, Urine Clarity Clear, Urine pH 6.0, Ur Specific [place] 1.020, Urine Protein 15 H, Urine Glucose (UA) Normal, Urine Ketones Negative, Urine Occult Blood Negative, Urine Nitrite Negative, Urine Bilirubin Negative, Urine Urobilinogen Normal, Ur Leukocyte Esterase 25 H, Urine RBC 0 SEEN, Urine WBC 0-5 SEEN, Ur Squamous Epith Cells 0 SEEN, Urine Bacteria 0 SEEN, Urine Mucus 0 SEEN 09/12/23 10:40: Troponin I High Sens 3 09/12/23 12:44: Troponin I High Sens 4 Imaging Radiology Impression Chest/Abdomen/Pelvis CTA 09/12/23 10:28 IMPRESSION: No demonstrated PE, or thoracic aortic aneurysm or dissection No aortic aneurysm or dissection No suspicious solid organ abnormality, previously noted 5 mm right UVJ stone no longer identified. There is no hydronephrosis or hydroureter. No free intraperitoneal fluid, air, or suspicious adenopathy, normal appendix visualized . Electronically Signed: Blair Coello MD at 11:22 EDT , Assessment & Plan Assessment/Plan (1) Intractable vomiting: (2) Anxiety and depression: (3) Epigastric pain: PLAN: Plan #Intractable n/v/epigastric pain -?Severe GERD vs gastritis vs gastroenteritis -Worsened with toradol -Does use marijuana twice daily via a marijuana medical card, could be aspect of cyclical vomiting reports this has not happened in the past and reports no change in his marijuana usage recently -Given inability to tolerate p.o. Will admit and start on IVF and clear liquid diet as tolerated -IV PPI -I's and O's -Will check mag as he has had some paresthesias though presently resolved -No diarrhea, if diarrhea develops will get stool studies, no other specific s/s pointing to other cause -Monitor overnight, if not improving will need further work up/treatment -BP is slightly low in ED but this was after pt received benadryl, ativan, and morphine, will monitor BP #Recent kidney stone and recent concern for UTI -No bacteria seen at this time, does report his symptoms have been improving and on CT kidney stone is passed -Only took several days of the cephalexin has not taken it since -Slight elevation in white blood cell count, will recheck in the a.m., at this time suspect severe reflux is reason for his epigastric pain and present symptoms but will monitor for infectious etiology # Anxiety -Uses chronic medical marijuana at home twice daily -Would likely benefit from daily medication to lower her overall anxiety however will defer to outpatient management especially given projected short length of stay -Hydroxyzine as needed while inpatient #Tobacco use-uses snuff -Advise cessation -Nicotine replacement available if desired, patient presently refuses #DVT ppx: Low risk, ambulatory and under observation status Genesis Starkey MD Time spent in the patient's overall evaluation,decision-making process, review of diagnostic data, adjustment of management, discussion with other providers, nursing nursing and ancillary staff involved in patient's care documentation, 56 minutes Charges/Coding Visit Charges Inpatient E&M: 57209 Init Hosp L2
--- NOTE | 2023-09-12 18:11 | NURSING ---
MED [facility] INTRACTABLE VOMITING
[2023-09-12] MEDS: 0.9% Normal Saline (1000mL) 1,000 ML 999 ML IV (19:50)
[2023-09-13 03:00] VITALS: BP 106/73; PULSE 62; RESP 15; TEMP 36.7; O2SAT 99
[2023-09-13 06:53] LABS: Absolute Lymphocyte Count 1.49 X10^3/uL (0.83-4.51); Absolute Neutrophil Count 5.3 X10^3/uL (2.0-7.7); Basophil# 0.03 X10^3/uL; Basophil% 0.4 % (0-1); Eosinophil# 0.12 X10^3/uL; Eosinophils% 1.5 % (0-5); Hemoglobin 13.5 g/dL (13.0-16.5); Lymphocyte # 1.49 X10^3/ul (0.83-4.51); Lymphocyte % 19.1 % (19-41); Mean Corp Hgb Conc 32.1 g/dL (32-36); Mean Corpuscular Hgb 28.6 pg (27.0-32.0); Mean Platelet Vol. 11.9 fl (6.2-12.0); Monocyte# 0.84 X10^3/uL; Monocyte% 10.7 % (0-10); NRBC Flagged by Analyzer 0 % (0-5); Neutrophil # 5.25 X10^3/uL (2.7-7.7); Neutrophil % 67.1 % (47-70); Platelet Count 226 K/mm3 (150-450); RBC Distribution Width CV 12.7 % (11.6-14.6); RBC Distribution Width SD 41.7 fl (35.1-43.9); Red Blood Count 4.72 M/mm3 (4.6-6.2); White Blood Count 7.8 K/mm3 (4.4-11.0)
[2023-09-13 07:39] LABS: ALB/GLOB Ratio 1.1 RATIO (0.9-2.4); AST(SGOT) 22 U/L (15-37); Alanine Aminotransfer ALT/SGPT 51 U/L (16-61); Albumin, Serum 3.3 g/dL (3.2-5.0); Alkaline Phosphatase 81 U/L (45-117); Anion Gap 5 (5-15); BUN 12 mg/dL (7-18); BUN/Creat Ratio 11.7 RATIO (10-20); Calcium,Total 8.9 mg/dL (8.5-10.1); Chloride 109 mmol/L (98-107); Creatinine, Serum 1.03 mg/dL (0.70-1.30); EST Glomerular Filtration Rate 89 mL/min (>60); Est Glom Filt Rate - Afr Amer 108 mL/min (>60); Estimated Creatinine Clearance 113.03 ml/min; Globulin 2.9 g/dL (2.2-4.2); Glucose 94 mg/dL (74-106); Magnesium 1.9 mg/dL (1.6-2.6); Potassium 4.5 mmol/L (3.5-5.1); Protein, Total 6.2 g/dL (6.4-8.2); Sodium Level 141 mmol/L (136-145); Thyroid Stim Hormone (TSH) 1.19 uIU/mL (0.358-3.74)
[2023-09-13 08:06] VITALS: BP 109/67; PULSE 68; RESP 12; TEMP 36.9; O2SAT 98
[2023-09-13 10:51] LABS: Bacteria 0 SEEN /hpf (None Seen); Mucous, Urine 0 SEEN /hpf (<or=2+); Red Blood Cells-Urine 0 SEEN /hpf (0-5); Squamous Epithelial Cells - UA 0 SEEN /hpf (0-5); White Blood Cells 0 SEEN /hpf (0-5)
[2023-09-13 10:54] LABS: Color, Urine Yellow (Yellow); Glucose, Dipstick Normal (Normal); Ketone-Dipstick 15 mg/dl (Negative); Leukocyte Esterase-Dipstick Negative /ul (Negative); Nitrite-Dipstick Negative (Negative); Occult Blood-Urine Negative /ul (Negative); Protein-Dipstick Negative (Negative); Urine Bilirubin Dipstick Negative (Negative); Urine Clarity Clear (Clear); Urine Urobilinogen 1 mg/dl (Normal)
[2023-09-13] MEDS: Pantoprazole Sodium 40 MG in 0.9% Normal Saline (100mL MB+) 100 ML 330 MG IV (10:58)
[2023-09-13] MEDS: 0.9% Saline Lock 10 ML Syringe IV ×2 (11:01→11:37)
--- NOTE | 2023-09-13 11:26 | PCM.DC.SUM ---
Providers Date of Admission: 09/12/23 Date of Discharge: 09/13/23 Primary Care Physician: Dr. Nikhil Mayer MD Reason For Visit: INTRACTABLE VOMITING Diagnosis Discharge Diagnosis (1) Intractable vomiting: Status: Acute Code(s): R11.10 - Vomiting, unspecified (2) Anxiety and depression: Status: Acute Code(s): F41.9 - Anxiety disorder, unspecified; F32.9 - Major depressive disorder, single episode, unspecified (3) Epigastric pain: Status: Acute Code(s): R10.13 - Epigastric pain Plan #Intractable n/v/epigastric pain- suspect gerd # Anxiety #Tobacco use-uses snuff Medications at Discharge Home Medications pantoprazole 40 mg tablet,delayed release (Protonix) 40 mg PO DAILY #30 tabs 09/13/23 Hospital Course Summary of Care Provided Minutes Spent on Discharge: 33 Hospital Course: Per HPI: REMI THAO, is a 32 M with a history of anxiety, marijuana use, tobacco use who presented to [facility] ED 09/12/2023 due to epigastric pain and nausea and vomiting. 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 Will get some cold sweats if he is doing certain things and has felt occasionally lightheaded and like he might pass out and reports he does think he is dehydrated and he does not drink a lot of water. Denies diarrhea, aside from epigastric pain no other pain and has never had anything like this before. Smokes marijuana twice daily reports he has a medical marijuana card for his anxiety, denies any other substance use aside from chewing tobacco and denies alcohol. Patient occasionally will have some incomplete feeling of emptying his bladder and occasionally will feel a little bit of burning but this has been improving. Of note he was here 09/02 and found to have UTI and kidney stone and was discharged home due to stability on oral Keflex which he only took several days of, and urinary symptoms have been slowly improving, UA in ED negative for acute infection and kidney stone resolved on CT scan. INTERVAL HISTORY: Patient started on PPI and IV fluids, improved overnight, passed his kidney stone only couple days ago and did report a couple urinary symptoms still so even though UA in the ED was negative did put in repeat for confirmation. Suspect combination of GERD, anxiety, and dehydration. Advised patient to emphasize hydration and will discharge on PPI. On day of discharge patient tolerated diet and was feeling better and requested to DC home. Physical Exam Narrative General: Alert, oriented, no apparent distress HEENT: Atraumatic, normocephalic Eyes: extraocular movements grossly intact Neck: Supple Respiratory: normal respiratory effort Cardiovascular: no edema appreciated GI: nondistended Extremities: Moving all extremities Neuro: No overt focal neurological deficits Psych: Cooperative Weight / BMI Weight Weight: 86.2 kg Body Mass Index (BMI) 28.0 ABG / Lab / Microbiology Data 09/13/23 06:08 09/13/23 06:08 Laboratory: Laboratory Results - last 24 hr 09/12/23 12:44: Troponin I High Sens 4 09/13/23 06:08: WBC 7.8, RBC 4.72, Hgb 13.5, Hct 42.0, MCV 89.0, MCH 28.6, MCHC 32.1, RDW Std Deviation 41.7, RDW Coeff of Elieser 12.7, Plt Count 226, MPV 11.9, Immature Gran % (Auto) 1.200 H, Neut % (Auto) 67.1, Lymph % (Auto) 19.1, [place] % (Auto) 10.7 H, Eos % (Auto) 1.5, Baso % (Auto) 0.4, Absolute Neuts (auto) 5.3, Absolute Lymphs (auto) 1.49, Nucleated RBC % 0, Sodium 141, Potassium 4.5, Chloride 109 H, Carbon Dioxide 27.0, Anion Gap 5, BUN 12, Creatinine 1.03, Estim Creat Clear Calc 113.03, Est GFR (MDRD) Af Amer 108, Est GFR (MDRD) Non-Af 89, BUN/Creatinine Ratio 11.7, Glucose 94, Calcium 8.9, Magnesium 1.9, Total Bilirubin 0.90, AST 22, ALT 51, Alkaline Phosphatase 81, Total Protein 6.2 L, Albumin 3.3, Globulin 2.9, Albumin/Globulin Ratio 1.1, TSH 1.19 09/13/23 09:12: Urine Color Yellow, Urine Clarity Clear, Urine pH 6.0, Ur Specific [place] 1.020, Urine Protein Negative, Urine Glucose (UA) Normal, Urine Ketones 15 H, Urine Occult Blood Negative, Urine Nitrite Negative, Urine Bilirubin Negative, Urine Urobilinogen 1 H, Ur Leukocyte Esterase Negative, Urine RBC 0 SEEN, Urine WBC 0 SEEN, Ur Squamous Epith Cells 0 SEEN, Urine Bacteria 0 SEEN, Urine Mucus 0 SEEN D/C Instructions Discharge Diet: Light diet - advance as tolerated Meaningful Use Info Meaningful Use Meaningful Use Diagnoses (Choose all that apply): None applicable Ischemic Stroke Statin Dosing Therapy Reference: STATIN DOSE THERAPY REFERENCE: * Patients > 75 years receive moderate or high dose statin therapy. * Patients 75 years or YOUNGER should receive HIGH intensity statin dose unless contraindicated. You will be required to document reason for non-treatment if statin daily dose does not meet guidelines. HIGH DOSE STATIN THERAPY DAILY Atorvastatin > than or = to 40 mg Rosuvastatin > than or = to 20 mg Amlodipine + Atorvastatin > than or = to 2.5/40 mg Ezetimibe + Simvastatin 10/80 mg Simvastatin 80mg Discharge Plan Admission Admit Date/Time: 09/12/23 17:53 Primary Reason for Your Visit: Nausea, vomiting Attending Provider: Genesis Starkey Primary Care Provider: Nikhil Mayer Instructions Patient Instructions: Dehydration, GERD Dc, ED GERD (Adult) Additional Instructions / Restrictions: -It is important to maintain hydration and drink water especially in high heat conditions -You will be discharged on Protonix due to concerns for reflux, please discuss this with your primary care physician at your hospital follow-up -Please call your primary care provider's office upon discharge to schedule a hospital follow up within 1 week. -For any concerning signs or symptoms please call 911 or proceed to the nearest emergency department Discharge Orders/Prescriptions Prescriptions: New pantoprazole [Protonix] 40 mg tablet,delayed release (DR/EC) 40 mg PO DAILY Qty: 30 0RF Referrals / Follow Up: Nikhil Mayer MD [Primary Care Provider] - Within 1 Week Disposition Disposition (needs filled in before D/C Order can be placed): Home, Self Care Charges/Coding Visit Charges Inpatient E&M: 00318 Disch Hosp >30min
[2023-09-13] MEDS: Ondansetron 4 MG/2 ML Vial IV (11:37)
--- NOTE | 2023-09-13 11:47 | PHA.DC.MC.R ---
Pharmacy [facility] has performed discharge medication reconciliation and counseling for this patient. 1. PANTOPRAZOLE 40MG PO DAILY The patient's discharge medication list was reviewed for discrepancies and discrepancies were resolved. The patient was counseled on the following discharge medications and changes in medications for homegoing were reviewed. The Reason for Use, instructions for use, and potential side effects were reviewed for all new medications. The patient's questions regarding all of their medications were answered. The patient was able to verbally demonstrate an understanding of their discharge medications. Patient counseled by vice president pharmacyDavid. Medications at Discharge Home Medications pantoprazole 40 mg tablet,delayed release (Protonix) 40 mg PO DAILY #30 tabs 09/13/23
== END 2023-09-13 11:58 | disposition home or self-care (01) ==
LOC: ED 17:28 → MS3 18:06
PROVIDERS: Admitting Provider Internal Medicine; Emergency Provider Emergency Medicine; PCP Internal Medicine; Visit Provider Internal Medicine
DX: R11.2 Nausea with vomiting, unspecified (principal); R10.13 Epigastric pain; R07.9 Chest pain, unspecified; F41.9 Anxiety disorder, unspecified; F32.9 Major depressive disorder, single episode, unspecified; F17.220 Nicotine dependence, chewing tobacco, uncomplicated
CPT/HCPCS: 71275; 74174; 80048; 80053; 80076; 81001; 82962; 83690; 83735; 84443; 84484; 85025; 93005; 96361; 96365; 96366; 96372; 96375; 96376; 99221; 99285; J7030; Q9967; A4216; G0378; J2405

== ENCOUNTER 2023-11-08 20:31 | Emergency (ER) | payer BC, SELFPAY ==
[2023-11-08 20:32] VITALS: BP 133/106; PULSE 89; RESP 16; TEMP 36.8; O2SAT 98
[2023-11-08 20:35] VITALS: BMI 27.0
--- NOTE | 2023-11-08 21:19 | CT_ITS ---
EXAM: CT Abdomen And Pelvis W/O Contrast Injection HISTORY: Pain TECHNIQUE: Routine protocol CT abdomen and pelvis. IV Contrast: None.. Oral contrast: None. RADIATION DOSAGE (If Supplied By Facility): CTDIvol = ( 7.22 ) mGy, DLP = ( 387.67 ) mGycm Individualized dose optimization techniques were used for this CT. COMPARISON: CT abdomen and pelvis 09/12/2023. LIMITATIONS: None. FINDINGS: LOWER CHEST: Included lung bases are clear. LIVER: Grossly unremarkable. GALLBLADDER AND BILIARY TREE: Grossly unremarkable. PANCREAS: Grossly unremarkable. SPLEEN: Grossly unremarkable. ADRENAL GLANDS: Grossly unremarkable. KIDNEYS AND URETERS: There are a few small calculi in the left kidney. No hydronephrosis. PERITONEUM: No free air. No free fluid. BOWEL: No bowel obstruction. Several prominent lymph nodes in the mesentery not significantly changed. APPENDIX: Visualized and unremarkable. No evidence of acute appendicitis. VESSELS: Abdominal aorta is normal caliber. REPRODUCTIVE ORGANS: Grossly unremarkable URINARY BLADDER: Grossly unremarkable. ABDOMINAL WALL: Unremarkable. BONES: No acute abnormalities. 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 Left nephrolithiasis without hydronephrosis. Electronically Signed: Minna Cobb MD at 22:45 EDT ,
--- NOTE | 2023-11-08 21:20 | EX.ED.DYSGE1 ---
HPI History of Present Illness Chief Complaint: Nausea/Vomiting Detail of Chief Complaint: Nausea and vomiting Informant: patient Narrative Narrative: Patient presents with nausea and vomiting that started midday today. He states he is vomited multiple times. He describes diarrhea. Also diffuse abdominal discomfort. Patient states he has had episodes like this multiple times in the past. Patient does smoke marijuana regularly. Denies other illicit drugs. Denies alcohol use. No prior abdominal surgeries. He does have history of anxiety. [facility] Medical History (Updated 11/08/23 @ 23:[address] Helena Mercedes, DO) Kidney stones Hypersomnia Chronic pain Bilateral knee pain Shoulder pain Low back pain Tinnitus Insomnia History of psychiatric hospitalization PTSD (post-traumatic stress disorder) Anxiety and depression Home Medications ?Medication ?Instructions ?Recorded ?Last Taken ?Type NK 11/08/23 Unknown History Allergy/AdvReac Type Severity Reaction Status Date / Time No Known Allergies Allergy Verified 11/08/23 20:35 Family History Father Anxiety Depression Mother Anxiety Depression Alcoholism in family Uncle Alcoholism in family Brother Alcoholism in family Surgical History History of tonsillectomy Social History Smoking Status: Never smoker Smokeless tobacco user: chewing tobacco 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 substance use type: does not use what type of physical activity do you participate in: other details: active job with heavy lifting ROS ROS ED Review of Systems ROS Unobtainable: other Constitutional Constitutional ED: Reports lethargy; Denies chills, fever(s), sweats or weight loss Eyes Eyes: Denies blurry vision, change in vision or diplopia ENT ENT ED: Denies rhinorrhea or sore throat Cardiovascular Cardiovascular: Denies chest pain, orthopnea or racing heartbeat Respiratory/Chest Respiratory/Chest: Denies cough, dyspnea, dyspnea on exertion, orthopnea or sputum Gastrointestinal Gastrointestinal: Reports abdominal pain, diarrhea, nausea and vomiting Genitourinary Genitourinary ED: Denies dysuria, hematuria or urinary frequency Musculoskeletal Musculoskeletal: Denies arthralgias, back pain, myalgias or neck pain Integumentary Denies abscess, Abrasions or rash Neurologic Neurologic: Denies headache(s) or weakness Psychiatric Psychiatric: Denies anxiety, depression or suicidal thoughts Endocrine Endocrinology: Denies polydipsia, polyphagia or polyuria Hematologic/Lymphatic Hematologic/Lymphatic: Denies easy bleeding, easy bruising or lymphadenopathy Allergic/Immunologic Allergic/Immunologic ED: Denies mouth swelling, tongue swelling or urticaria EXAM Physical Exam Const Vital Signs: 11/08/23 20:32 11/08/23 22:05 Temperature 98.2 F Temperature Source Temporal Pulse Rate 89 80 Respiratory Rate 16 18 Blood Pressure 133/106 H 159/91 H Blood Pressure Mean 115 113 Pulse Ox 98 95 Oxygen Delivery Method Room Air Room Air Positive well nourished and well developed General Appearance ED: well developed and NAD HEENT Reports TM's clear and moist mucous membranes normocephalic and atraumatic; Negative for trauma or tenderness Tympanic Membrane ED: Yes TM's clear Eyes PERRL and EOMs intact bilaterally General Eye ED: Negative for pale conjunctiva or scleral icterus Neck no lymphadenopathy, supple and no JVD General: Negative for tenderness Chest Wall inspection of chest normal and palpation of chest normal Chest: Negative for tenderness Resp normal respiratory effort and clear to auscultation bilaterally Effort and Inspection: Negative for respiratory distress or pain with movement Auscultation: Negative for rhonchi, wheezes or diminished lung sounds Cardio regular rate, regular rhythm, S1 normal heart sound, S2 normal heart sound and no murmurs Peripheral Pulses: pulses 2+ throughout GI normal to inspection, nondistended, normoactive bowel sounds, soft to palpation, non-distended and no masses GI Narrative: Mild diffuse tenderness. There is no rebound, rigidity, or purulent signs. No mass palpated. Back/Spine no CVA tenderness and no thoracic nor lumbar tenderness Extremity normal to inspection General Extremety ED: Negative for edema General Extremity: Negative for edema Neuro oriented x3, CN's II-XII intact bilaterally, no sensory deficits noted and gait normal Sensorium / Orientation: awake, alert, oriented to person, oriented to place and oriented to time Motor Exam: strength 5/5 throughout and strength abnormal Psych mental status grossly normal Skin no rashes or lesions noted and no wounds MDM MDM MDM Narrative Medical decision making narrative: Patient presents with vomiting and diarrhea that started this afternoon. History of anxiety and cannabis smoker. In the differential would be cannabis hyperemesis versus viral gastroenteritis or other acute intra-abdominal process. He is complaining of abdominal pain as well. IV line established. He was medicated with Reglan and Ativan and given a liter mostly fluid bolus. CBC with differential obtained showed a white count 17.4 with hemoglobin 16 and platelet count of 298. Chemistries were unremarkable. LFTs were normal. Lipase normal at 15. CT scan of the abdomen pelvis obtained showed no acute findings. Patient accidentally rolled over in bed and states he pulled out his IV. This will be reestablished as he is continuing to feel nauseated. I ordered Zofran 4 mg IV. Care of patient will be turned over to evening physician to await reevaluation to make sure he can tolerate p.o. fluids. I feel if we can get him comfortable he can be safely discharged to home with antiemetics. Lab Data Attestation: I reviewed the patient's lab results. Labs: Laboratory Results - last 24 hr 11/08/23 21:30 WBC 17.4 H RBC 5.53 Hgb 16.0 Hct 48.1 MCV 87.0 MCH 28.9 MCHC 33.3 RDW Std Deviation 39.9 RDW Coeff of Elieser 12.5 Plt Count 298 MPV 11.1 Immature Gran % (Auto) 0.800 Neut % (Auto) 89.5 H Lymph % (Auto) 4.4 L [place] % (Auto) 4.8 Eos % (Auto) 0.0 Baso % (Auto) 0.5 Absolute Neuts (auto) 15.5 H Absolute Lymphs (auto) 0.77 L Nucleated RBC % 0 Sodium 137 Potassium 4.4 Chloride 102 Carbon Dioxide 29.0 Anion Gap 6 BUN 16 Creatinine 1.16 Estim Creat Clear Calc 92.27 Est GFR (MDRD) Af Amer 94 Est GFR (MDRD) Non-Af 78 BUN/Creatinine Ratio 13.8 Glucose 152 H Calcium 10.1 Total Bilirubin 1.20 H AST 16 ALT 35 Alkaline Phosphatase 109 Total Protein 8.3 H Albumin 4.5 Globulin 3.8 Albumin/Globulin Ratio 1.2 Lipase 15 Radiography Diagnostic Testing: Clinical Impression(s) from Imaging Studies Abdomen/Pelvis CT 11/08/23 21:19 IMPRESSION: No acute findings. Left nephrolithiasis without hydronephrosis. Electronically Signed: Minna Cobb MD at 22:45 EDT , Discharge Plan Triage Chief Complaint: Nausea/Vomiting ED Provider: Helena Mercedes Dx/Rx/DC Orders Clinical Impression: Vomiting, Abdominal pain Prescriptions: No Action NK Primary Care Provider: Nikhil Mayer Referrals: Nikhil Mayer MD [Primary Care Provider] - Print Language: Slovak
[2023-11-08] MEDS: 0.9% Normal Saline (1000mL) 1,000 ML 999 ML IV ×2 (21:34→23:33)
[2023-11-08] MEDS: Metoclopramide 10 MG/2 ML Vial IV (21:34)
[2023-11-08] MEDS: LORazepam 2 MG/ML Syringe 0.5 MG IV (21:34)
[2023-11-08 21:48] LABS: Absolute Lymphocyte Count 0.77 X10^3/uL (0.83-4.51); Absolute Neutrophil Count 15.5 X10^3/uL (2.0-7.7); Basophil# 0.08 X10^3/uL; Basophil% 0.5 % (0-1); Hematocrit 48.1 % (40-54); Lymphocyte # 0.77 X10^3/ul (0.83-4.51); Lymphocyte % 4.4 % (19-41); Mean Corp Hgb Conc 33.3 g/dL (32-36); Mean Corpuscular Hgb 28.9 pg (27.0-32.0); Mean Platelet Vol. 11.1 fl (6.2-12.0); Monocyte# 0.84 X10^3/uL; Monocyte% 4.8 % (0-10); NRBC Flagged by Analyzer 0 % (0-5); Neutrophil # 15.52 X10^3/uL (2.7-7.7); Neutrophil % 89.5 % (47-70); Platelet Count 298 K/mm3 (150-450); RBC Distribution Width CV 12.5 % (11.6-14.6); RBC Distribution Width SD 39.9 fl (35.1-43.9); Red Blood Count 5.53 M/mm3 (4.6-6.2); White Blood Count 17.4 K/mm3 (4.4-11.0)
[2023-11-08 22:05] VITALS: BP 159/91; PULSE 80; RESP 18; O2SAT 95
[2023-11-08 22:08] LABS: ALB/GLOB Ratio 1.2 RATIO (0.9-2.4); AST(SGOT) 16 U/L (15-37); Alanine Aminotransfer ALT/SGPT 35 U/L (16-61); Albumin, Serum 4.5 g/dL (3.2-5.0); Alkaline Phosphatase 109 U/L (45-117); Anion Gap 6 (5-15); BUN 16 mg/dL (7-18); BUN/Creat Ratio 13.8 RATIO (10-20); Calcium,Total 10.1 mg/dL (8.5-10.1); Chloride 102 mmol/L (98-107); Creatinine, Serum 1.16 mg/dL (0.70-1.30); EST Glomerular Filtration Rate 78 mL/min (>60); Est Glom Filt Rate - Afr Amer 94 mL/min (>60); Estimated Creatinine Clearance 92.27 ml/min; Globulin 3.8 g/dL (2.2-4.2); Glucose 152 mg/dL (74-106); Lipase 15 U/L (13-75); Potassium 4.4 mmol/L (3.5-5.1); Protein, Total 8.3 g/dL (6.4-8.2); Sodium Level 137 mmol/L (136-145)
[2023-11-08] MEDS: Ondansetron 4 MG/2 ML Vial IV (23:33)
[2023-11-09] VITALS: BP 121/78
[2023-11-09] MEDS: Haloperidol Lactate 5 MG/ML Vial 2 MG IV (00:31)
[2023-11-09 02:00] VITALS: BP 106/59; PULSE 71; RESP 18; O2SAT 97
[2023-11-09 02:25] VITALS: BP 97/48; PULSE 73; RESP 14; TEMP 35.8; O2SAT 98
== END 2023-11-09 02:29 | disposition home or self-care (01) ==
PROVIDERS: Emergency Provider Emergency Medicine; PCP Internal Medicine; Visit Provider Emergency Medicine
DX: R11.2 Nausea with vomiting, unspecified (principal); F41.9 Anxiety disorder, unspecified; R19.7 Diarrhea, unspecified; F17.220 Nicotine dependence, chewing tobacco, uncomplicated; N20.0 Calculus of kidney
CPT/HCPCS: 74176; 80053; 83690; 85025; 96361; 96374; 96375; 99283; J7030; A4216; J2405

== ENCOUNTER 2024-07-11 18:32 | Emergency (ER) | payer BC, SELFPAY ==
[2024-07-11 18:33] VITALS: PULSE 116; RESP 15; TEMP 35.7; O2SAT 96
--- NOTE | 2024-07-11 19:21 | EX.ED.DYSGE1 ---
HPI History of Present Illness Chief Complaint: Nausea/Vomiting Informant: patient and parent Narrative Narrative: 33-year-old male presenting to the emergency room with a chief complaint of vomiting. Patient states yesterday he had diarrhea today since 0900 hrs. he has had vomiting. States that he feels that he is severely dehydrated. Patient notes recreational cannabis use. He notes low-grade fevers. He notes cough sore throat. He also notes a history of anxiety feels that that is flaring also. Patient needed to be helped into the bed from the floor by the mattress spring encaser. Dad notes that he has been complaining of leg cramps. [facility] Medical History (Updated 07/11/24 @ 22:[address] Ajay Baez, DO) Kidney stones Hypersomnia Chronic pain Bilateral knee pain Shoulder pain Low back pain Tinnitus Insomnia History of psychiatric hospitalization PTSD (post-traumatic stress disorder) Anxiety and depression Home Medications ?Medication ?Instructions ?Recorded ?Last Taken ?Type ondansetron 4 mg disintegrating 4 mg PO Q6H PRN nausea and 11/09/23 Unknown Rx tablet vomiting #14 tabs ondansetron 4 mg disintegrating 4 mg PO Q6H PRN PRN Nausea #15 tabs 07/11/24 Unknown Rx tablet Allergy/AdvReac Type Severity Reaction Status Date / Time No Known Allergies Allergy Verified 07/11/24 18:33 Family History Father Anxiety Depression Mother Anxiety Depression Alcoholism in family Uncle Alcoholism in family Brother Alcoholism in family Surgical History History of tonsillectomy Social History Smoking Status: Never smoker Smokeless tobacco user: chewing tobacco 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 substance use type: does not use what type of physical activity do you participate in: other details: active job with heavy lifting ROS ROS ED Constitutional Constitutional ED: Reports fever(s) and subjective; Denies chills or weight loss Eyes Eyes: Denies change in vision or diplopia ENT ENT ED: Denies ear pain, rhinorrhea or sore throat Cardiovascular Cardiovascular: Denies chest pain, orthopnea, palpitations or racing heartbeat Respiratory/Chest Respiratory/Chest: Denies cough, dyspnea or orthopnea Gastrointestinal Gastrointestinal: Reports abdominal pain, diarrhea, nausea and vomiting Genitourinary Genitourinary ED: Denies dysuria, hematuria or urinary frequency Musculoskeletal Musculoskeletal: Reports other Details: Muscle cramps ; Denies arthralgias or myalgias Integumentary Denies abscess or rash Neurologic Neurologic: Denies headache(s) or weakness Psychiatric Psychiatric: Denies anxiety, depression, suicidal ideation or suicidal thoughts Endocrine Endocrinology: Denies polydipsia, polyphagia or polyuria Allergic/Immunologic Allergic/Immunologic ED: Denies mouth swelling, tongue swelling or urticaria EXAM Physical Exam Narrative Exam Narrative: Patient lying with his face down on the bed. He states he cannot rollover but eventually does so I can do an examination. He appears tachypneic and distressed. Const Vital Signs: 07/11/24 18:33 07/11/24 20:28 07/11/24 22:00 Temperature 96.2 F L Temperature Source Temporal Pulse Rate 116 H 59 L 58 L Respiratory Rate 15 18 17 Blood Pressure 112/94 H 98/62 Blood Pressure Mean 100 74 Pulse Ox 96 98 98 Oxygen Delivery Method Room Air Room Air Room Air Positive well nourished and well developed General Appearance ED: well developed HEENT Reports normocephalic, head/scalp atraumatic and moist mucous membranes Eyes PERRL and EOMs intact bilaterally Neck no lymphadenopathy, supple and no JVD Resp normal respiratory effort and clear to auscultation bilaterally Cardio regular rate, regular rhythm and no murmurs GI normal to inspection, nondistended, normoactive bowel sounds and non-tender Palpation: soft Back/Spine no CVA tenderness and normal ROM Extremity normal to inspection General Extremety ED: Negative for edema General Extremity: Negative for edema Neuro oriented x3 and CN's II-XII intact bilaterally Sensorium / Orientation: alert Motor Exam: strength 5/5 throughout Psych mental status grossly normal Mood & Affect: Negative for depressed or tearful Skin no rashes or lesions noted and no wounds MDM MDM MDM Narrative Medical decision making narrative: Differential diagnosis includes but not limited to gastroenteritis cannabis hyperemesis syndrome anxiety reaction pancreatitis biliary colic dehydration electrolyte abnormalities acute kidney injury Patient's white count is elevated 20.6. He has had exaggerated leukocytosis in the past. Lipase is normal at 37. Normal LFTs. Glucose 183. Creatinine 1.14 with a BUN of 16. Anion gap is 15 CO2 third 23.6. Normal sodium and potassium. Patient received IV fluids Zofran and Ativan. Patient was still having retching and following the cyclic vomiting pathway gave him Thorazine and Benadryl. This is allowed him to rest. Clinically the patient appears well-hydrated. He does not have electrolyte dysfunction kidney injury evidence of pancreatitis. He does use cannabis and I do wonder about cannabis hyperemesis syndrome. I spoke with the father regarding this. We also talked about following up with GI if needed and father notes that they were speaking of possibly doing an upper/lower GI evaluation few months ago but did not occur. I can refer him to GI. I will write for some History & Record Review Discussion w/independent historian: Patient and Family Additional record(s) reviewed:: Prior ED visit and Prior labs Lab Data Attestation: I reviewed the patient's lab results. Labs: Laboratory Results - last 24 hr 07/11/24 19:24 WBC 20.6 H RBC 5.22 Hgb 15.3 Hct 44.0 MCV 84.3 MCH 29.3 MCHC 34.8 RDW Std Deviation 37.8 RDW Coeff of Elieser 12.3 Plt Count 279 MPV 11.3 Immature Gran % (Auto) 0.900 Neut % (Auto) 89.7 H Lymph % (Auto) 4.1 L [place] % (Auto) 4.9 Eos % (Auto) 0.0 Baso % (Auto) 0.4 Absolute Neuts (auto) 18.5 H Absolute Lymphs (auto) 0.84 Nucleated RBC % 0 Sodium 140 Potassium 4.2 Chloride 101 Carbon Dioxide 23.6 Anion Gap 15 BUN 16 Creatinine 1.14 Est GFR (MDRD) Non-Af 88 BUN/Creatinine Ratio 14.4 Glucose 183 H Calcium 10.4 Total Bilirubin 1.06 AST 25 ALT 20 Alkaline Phosphatase 110 Total Protein 8.0 Albumin 5.0 Globulin 3.0 Albumin/Globulin Ratio 1.6 Lipase 37 Discharge Plan Triage Chief Complaint: Nausea/Vomiting ED Provider: Ajay Baez Dx/Rx/DC Orders Clinical Impression: Vomiting, Abdominal pain Instructions: ED Cyclic Vomiting Syndrome, ED Vomiting (Adult) Prescriptions: New ondansetron 4 mg tablet,disintegrating 4 mg PO Q6H PRN PRN (Reason: Nausea) Qty: 15 0RF No Action ondansetron 4 mg tablet,disintegrating 4 mg PO Q6H PRN (Reason: nausea and vomiting) Qty: 14 0RF Primary Care Provider: Nikhil Mayer Referrals: Nikhil Mayer MD [Primary Care Provider] - Friend,DO Amandeep [Med Staff - Active Staff] - (for GI evaluation) Print Language: Portuguese Disposition Disposition: Home, Self Care
[2024-07-11] MEDS: Ondansetron 4 MG/2 ML Vial IV (19:34)
[2024-07-11] MEDS: Lorazepam 2 MG/ML WCH Syringe 0.5 MG IV (19:34)
[2024-07-11] MEDS: 0.9% Normal Saline (1000mL) 1,000 ML 1000 ML IV (19:34)
[2024-07-11] MEDS: Famotidine 200 MG/20 ML MDV 20 MG in 0.9% Normal Saline (Pres. free 8 ML 300 MG IV (19:35)
[2024-07-11 19:47] LABS: Absolute Lymphocyte Count 0.84 X10^3/uL (0.83-4.51); Absolute Neutrophil Count 18.5 X10^3/uL (2.0-7.7); Basophil# 0.08 X10^3/uL; Basophil% 0.4 % (0-1); Hemoglobin 15.3 g/dL (13.0-16.5); Lymphocyte # 0.84 X10^3/ul (0.83-4.51); Lymphocyte % 4.1 % (19-41); Mean Corp Hgb Conc 34.8 g/dL (32-36); Mean Corpuscular Hgb 29.3 pg (27.0-32.0); Mean Corpuscular Volume 84.3 fL (80-94); Mean Platelet Vol. 11.3 fl (6.2-12.0); Monocyte# 1.02 X10^3/uL; Monocyte% 4.9 % (0-10); NRBC Flagged by Analyzer 0 % (0-5); Neutrophil # 18.51 X10^3/uL (2.7-7.7); Neutrophil % 89.7 % (47-70); Platelet Count 279 K/mm3 (150-450); RBC Distribution Width CV 12.3 % (11.6-14.6); RBC Distribution Width SD 37.8 fl (35.1-43.9); Red Blood Count 5.22 M/mm3 (4.6-6.2); White Blood Count 20.6 K/mm3 (4.4-11.0)
[2024-07-11 20:03] LABS: ALB/GLOB Ratio 1.6 RATIO (0.9-2.4); AST(SGOT) 25 U/L (<=37); Alanine Aminotransfer ALT/SGPT 20 U/L (<=46); Alkaline Phosphatase 110 U/L (40-129); Anion Gap 15 (5-15); BUN 16 mg/dL (4-19); BUN/Creat Ratio 14.4 RATIO (10-20); Calcium,Total 10.4 mg/dL (7.6-11.0); Carbon Dioxide 23.6 mmol/L (21.0-32.0); Chloride 101 mmol/L (98-108); Creatinine, Serum 1.14 mg/dL (0.70-1.20); EST Glomerular Filtration Rate 88 (>60); Glucose 183 mg/dL (70-99); Lipase 37 U/L (13-75); Potassium 4.2 mmol/L (3.3-5.1); Sodium Level 140 mmol/L (133-145); Total Bilirubin 1.06 mg/dL (0.00-1.30)
[2024-07-11 20:28] VITALS: BP 112/94; PULSE 59; RESP 18; O2SAT 98
[2024-07-11] MEDS: DiphenhydrAMINE 50 MG, ChlorproMAZINE IM 25 MG in 0.9% Normal Saline (100mL Bag) 100 ML 204 MG IV (21:32)
--- NOTE | 2024-07-11 21:34 | ED.RN ---
Pt BP 95/60. Discussed with Dr. Baez due to Thorazine medication administration. Okay to give, verified with
[2024-07-11 22:00] VITALS: BP 98/62; PULSE 58; RESP 17; O2SAT 98
[2024-07-11 22:40] VITALS: BP 97/61; PULSE 87; RESP 18; TEMP 36.6; O2SAT 100
== END 2024-07-11 22:53 | disposition home or self-care (01) ==
PROVIDERS: Emergency Provider Emergency Medicine; PCP Internal Medicine; Visit Provider Emergency Medicine
DX: R11.2 Nausea with vomiting, unspecified (principal); J02.9 Acute pharyngitis, unspecified; R10.9 Unspecified abdominal pain; F12.90 Cannabis use, unspecified, uncomplicated; F17.220 Nicotine dependence, chewing tobacco, uncomplicated
CPT/HCPCS: 80053; 83690; 85025; 96365; 96375; 99284; A4216; J2405

== ENCOUNTER 2024-11-15 17:26 | Emergency (ER) | payer BC, SELFPAY ==
[2024-11-15 17:26] VITALS: BP 138/90; PULSE 86; RESP 22; TEMP 36.3; O2SAT 100
--- NOTE | 2024-11-15 17:35 | PCA ---
PT CALLS IN WANTING UPDATES FOR PT DUE TO PT NOT BRINGING HIS CELLPHONE. ALSO STATES SHE THINKS HE HAS CHS AND WOULD LIKE THAT TO BE PUT IN CONSIDERATION WHEN DIAGNOSING. [employer]YER REPAIRER TOLD SHE WOULD PUT IN NOTE AND TELL NURSE.
--- NOTE | 2024-11-15 17:57 | EX.ED.GENINJ ---
HPI History of Present Illness Chief Complaint: Nausea/Vomiting Narrative Narrative: Chief complaint and HPI: Nausea and vomiting. 34-year-old male with past medical history of PTSD, anxiety, depression, cyclic vomiting secondary to cannabis abuse presents for evaluation of nausea and vomiting. Patient states 2 days ago he smoked marijuana. States since then he has developed nausea and vomiting. He endorses diffuse abdominal pain but states it occurred after the emesis. Denies blood in the emesis. Denies fever, chills, shortness of breath, chest pain, diarrhea, constipation, dysuria. Review of systems: See HPI Medications: As listed on the chart Allergies: As listed on the chart PFSH: Per chart Vital signs: As listed on the chart. Reviewed. Physical exam: Gen: A&O x3, NAD Head: Normocephalic, atraumatic Eyes: No sclera icterus, conjunctiva clear ENT: Dry mucous membranes Neck: Trachea midline, No JVD CV: RRR, no murmurs, no peripheral edema Resp: Lungs CTA BL, no w/r/c GI: Abd soft, non-distended, non-tender, no r/r/g Musc: Full ROM, no deformity Skin: Warm, dry Neuro: Alert, oriented, grossly intact, sensation intact Psych: Cooperative, appropriate mood and affect [facility] History (Updated 11/15/24 @ 21:[address] Bruce Butler, ) Kidney stones Hypersomnia Chronic pain Bilateral knee pain Shoulder pain Low back pain Tinnitus Insomnia History of psychiatric hospitalization PTSD (post-traumatic stress disorder) Anxiety and depression Home Medications ?Medication ?Instructions ?Recorded ?Last Taken ?Type ondansetron 4 mg disintegrating 4 mg PO Q6H PRN nausea and 11/09/23 Unknown Rx tablet vomiting #14 tabs Allergy/AdvReac Type Severity Reaction Status Date / Time No Known Allergies Allergy Verified 11/15/24 17:29 Family History Father Anxiety Depression Mother Anxiety Depression Alcoholism in family Uncle Alcoholism in family Brother Alcoholism in family Surgical History History of tonsillectomy Social History Smoking Status: Never smoker Smokeless tobacco user: chewing tobacco 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 substance use type: does not use what type of physical activity do you participate in: other details: active job with heavy lifting EXAM Physical Exam Const Vital Signs: 11/15/24 17:26 11/15/24 19:46 Temperature 97.4 F L Temperature Source Oral Pulse Rate 86 88 Respiratory Rate 22 H 15 Blood Pressure 138/90 H Blood Pressure Mean 106 Pulse Ox 100 100 Oxygen Delivery Method Room Air MDM MDM MDM Narrative Medical decision making narrative: 34-year-old male with past medical history of PTSD, anxiety, depression, cyclic vomiting secondary to cannabis abuse presents for evaluation of nausea and vomiting. Patient states 2 days ago he smoked marijuana. States since then he has developed nausea and vomiting. On chart review, patient has presented multiple times for emergency department secondary to his cyclic vomiting. Symptoms usually improve with Benadryl and Thorazine. Differential diagnosis includes but is not limited to cyclic vomiting secondary to cannabis abuse, electrolyte abnormality, dehydration, suspect less likely intra-abdominal pathology or UTI. On physical exam, abdominal exam is benign therefore do not think any CT abdomen and pelvis is needed. NS bolus, Benadryl, Thorazine ordered for suspected cyclic vomiting secondary to cannabis abuse. Basic labs ordered with urine. CBC with leukocytosis of 23.5. On chart review, patient has consistent leukocytosis including in June when patient presented for the same complaint it was 20.6. Likely reactive. Patient has hemoconcentration of 16.8 which is consistent with mild dehydration from nausea and vomiting. BMP shows renal insufficiency with a creatinine of 1.27. Likely secondary to dehydration from nausea and vomiting. He has an anion gap which is consistent with his nausea and vomiting. Lipase is unremarkable. UA is positive for ketones and negative for glucose. Consistent with dehydration from nausea and vomiting. Negative for UTI. On reevaluation, patient's symptoms have improved with medication. He was able to tolerate p.o. intake. I recommended refraining from marijuana. He was educated to drink plenty of fluids over the next several days. He has antinausea medicine at home. Declined a prescription. Return precautions explained. He confirmed understanding the plan. Patient will discharge home. Impression: 1. Cannabis hyperemesis syndrome 2. History of marijuana abuse 3. Dehydration Lab Data Labs: Laboratory Results - last 24 hr 11/15/24 11/15/24 17:39 19:45 WBC 23.5 H RBC 5.62 Hgb 16.8 H Hct 48.0 MCV 85.4 MCH 29.9 MCHC 35.0 RDW Std Deviation 39.1 RDW Coeff of Elieser 12.5 Plt Count 308 MPV 11.8 Immature Gran % (Auto) 1.100 H Neut % (Auto) 87.4 H Lymph % (Auto) 3.7 L [place] % (Auto) 7.3 Eos % (Auto) 0.0 Baso % (Auto) 0.5 Absolute Neuts (auto) 20.6 H Absolute Lymphs (auto) 0.86 Nucleated RBC % 0 Differential Comment SCANNED Platelet Estimate ADEQUATE Sodium 139 Potassium 4.1 Chloride 96 L Carbon Dioxide 21.6 Anion Gap 22 H BUN 18 Creatinine 1.27 H Est GFR (MDRD) Non-Af 77 BUN/Creatinine Ratio 14.0 Glucose 161 H Calcium 10.9 Total Bilirubin 1.15 AST 27 ALT 22 Alkaline Phosphatase 105 Total Protein 8.6 H Albumin 5.4 H Globulin 3.2 Albumin/Globulin Ratio 1.7 Lipase 36 Urine Color Yellow Urine Clarity Cloudy Urine pH 6.0 Ur Specific [place] 1.020 Urine Protein 100 H Urine Glucose (UA) Normal Urine Ketones 150 A* Urine Occult Blood 25 H Urine Nitrite Negative Urine Bilirubin 1 H Urine Urobilinogen 1 H Ur Leukocyte Esterase 25 H Urine RBC 0-5 SEEN Urine WBC 0-5 SEEN Ur Squamous Epith Cells 0-5 SEEN Urine Bacteria 1+ Urine Mucus 0 SEEN Discharge Plan Triage Chief Complaint: Nausea/Vomiting ED Provider: Bruce Butler Dx/Rx/DC Orders Clinical Impression: Cannabinoid hyperemesis syndrome Instructions: Cannabis Hyperemesis Syndrome Prescriptions: No Action ondansetron 4 mg tablet,disintegrating 4 mg PO Q6H PRN (Reason: nausea and vomiting) Qty: 14 0RF Primary Care Provider: Nikhil Mayer Referrals: Nikhil Mayer MD [Primary Care Provider] - 3-5 Days Activity Restrictions/Additional Instructions: Stop smoking marijuana. Follow-up with your primary care physician. Take your home antinausea medicine. Return back to the ED if symptoms change or worsen. Drink plenty of fluids. Print Language: Hebrew Disposition Disposition: Home, Self Care
[2024-11-15 18:08] LABS: Hematocrit 48.0 % (40-54); Hemoglobin 16.8 g/dL (13.0-16.5); Immature Granulocytes Count 0.260 X10^3/uL (0.0-0.0); Mean Corp Hgb Conc 35.0 g/dL (32-36); Mean Corpuscular Volume 85.4 fL (80-94); Mean Platelet Vol. 11.8 fl (6.2-12.0); NRBC Flagged by Analyzer 0 % (0-5); POSITIVE DIFFERENTIAL YES; Platelet Count 308 K/mm3 (150-450); RBC Distribution Width CV 12.5 % (11.6-14.6); RBC Distribution Width SD 39.1 fl (35.1-43.9); Red Blood Count 5.62 M/mm3 (4.6-6.2); White Blood Count 23.5 K/mm3 (4.4-11.0)
[2024-11-15 18:11] LABS: Differential Indicated SCAN CRITERIA MET
[2024-11-15 18:30] LABS: AST(SGOT) 27 U/L (<=37); Alanine Aminotransfer ALT/SGPT 22 U/L (<=46); Albumin, Serum 5.4 g/dL (3.5-5.0); Alkaline Phosphatase 105 U/L (40-129); Anion Gap 22 (5-15); BUN 18 mg/dL (4-19); BUN/Creat Ratio 14.0 RATIO (10-20); Calcium,Total 10.9 mg/dL (7.6-11.0); Carbon Dioxide 21.6 mmol/L (21.0-32.0); Chloride 96 mmol/L (98-108); Globulin 3.2 g/dL (2.2-4.2); Glucose 161 mg/dL (70-99); Lipase 36 U/L (13-75); Potassium 4.1 mmol/L (3.3-5.1)
[2024-11-15] MEDS: 0.9% Normal Saline (1000mL) 1,000 ML 1000 ML IV (18:31)
[2024-11-15] MEDS: DiphenhydrAMINE 25 MG, ChlorproMAZINE 50 MG in 0.9% Normal Saline (250mL Bag) 247.5 ML 250 MG IV (18:31)
[2024-11-15 19:41] LABS: Differential Comment SCANNED
[2024-11-15 19:46] VITALS: PULSE 88; RESP 15; O2SAT 100
[2024-11-15 19:50] LABS: Mucous, Urine 0 SEEN /hpf (<or=2+)
[2024-11-15 19:53] LABS: Color, Urine Yellow (Yellow); Glucose, Dipstick Normal (Normal); Leukocyte Esterase-Dipstick 25 /ul (Negative); Nitrite-Dipstick Negative (Negative); Occult Blood-Urine 25 /ul (Negative); Protein-Dipstick 100 mg/dl (Negative); Specific Gravity, Urine 1.020 (1.002-1.030)
[2024-11-15 20:10] LABS: Urine Bilirubin Dipstick 1 mg/dL (Negative)
[2024-11-15 20:13] LABS: Ketone-Dipstick 150 mg/dl (Negative)
[2024-11-15 20:34] LABS: Red Blood Cells-Urine 0-5 SEEN /hpf (0-5)
[2024-11-15 20:35] LABS: Squamous Epithelial Cells - UA 0-5 SEEN /hpf (0-5)
[2024-11-15 21:05] VITALS: BP 129/79; PULSE 88; RESP 15; TEMP 36.6; O2SAT 100
== END 2024-11-15 21:06 | disposition home or self-care (01) ==
PROVIDERS: Emergency Provider Surgery; PCP Internal Medicine; Visit Provider Surgery
DX: F12.188 Cannabis abuse with other cannabis-induced disorder (principal); E86.0 Dehydration; N28.9 Disorder of kidney and ureter, unspecified; R11.2 Nausea with vomiting, unspecified; F17.220 Nicotine dependence, chewing tobacco, uncomplicated
CPT/HCPCS: 80053; 81001; 83690; 85025; 96365; 96366; 99284